=== PATIENT | male | born 1945 | race Caucasian/White ===

== ENCOUNTER → 2017-03-23 18:17 | Outpatient (CLI) | payer MEDICARE ==
[2017-03-23 20:46] LABS: ANION GAP 17.9 mmol/L (8-16); CALCIUM 7.9 mg/dL (8.5-10.1); CARBON DIOXIDE 25.2 mmol/L (21.0-32.0); CREATININE - SERUM 1.8 mg/dL (0.6-1.3); POTASSIUM - SERUM 4.1 mmol/L (3.5-5.1)
== END | disposition home or self-care (01) ==
LOC: D.LAB 18:17
PROVIDERS: Internal Medicine Interventional Cardiology
DX: I10 Essential (primary) hypertension (principal)

== ENCOUNTER → 2017-10-13 08:27 | Outpatient (CLI) | payer MEDICARE | END | disposition home or self-care (01) | LOC: D.RT 08:27 | DX: J45.909 Unspecified asthma, uncomplicated (principal) ==

== ENCOUNTER → 2017-11-02 13:07 | Outpatient (CLI) | payer MEDICARE ==
[2017-11-03 11:19] LABS: ANA REFLEX - DIRECT Negative (Negative)
== END | disposition home or self-care (01) ==
LOC: D.CT 13:07
PROVIDERS: Internal Medicine Pulmonary Disease
DX: J98.11 Atelectasis (principal); R93.8 Abnormal findings on diagnostic imaging of other specified body structures

== ENCOUNTER → 2018-01-26 08:58 | Outpatient (CLI) | payer MEDICARE ==
[~2018-01-26] VITALS: Ht 177.8 cm; Wt 90.9 kg
--- NOTE | ~2018-01-26 | OP ---
PATIENT NAME: RUDI WILKINSON MEDICAL RECORD: [id number] :[birth year] LOCATION:D.CAT ADMISSION DATE: SURGEON: DWAIN WILCOX MD DATE OF OPERATION: 01/26/2018 PROCEDURES: 1. Left heart catheterization. 2. Selective coronary angiography. 3. Left ventriculogram. INDICATION: Chest pain compatible with angina. PROCEDURE IN DETAIL: After informed consent was obtained and after a detailed description of the risks, benefits as well as alternative therapies, the patient elected to proceed with angiogram and heart catheterization. The right radial area was prepped and draped in normal sterile fashion. Right radial artery was cannulated via modified Seldinger technique with placement of 5-Bahamian sheath. All catheters exchanged through this sheath. FINDINGS: The left ventriculogram was performed in standard 30-degree MURPHY view reveals preserved cardiac wall motion, ejection fraction 60%. SELECTIVE CORONARY ANGIOGRAPHY: Left main, left anterior descending, left circumflex, right coronary artery are all smooth-walled vessels with no angiographic evidence of coronary artery disease. OVERALL IMPRESSION: 1. No angiographic evidence of coronary artery disease. 2. Normal left heart pressures. 3. Normal left ventricular systolic function. Chest pain is noncardiac in etiology. No further cardiac workup needs to be ascertained. TRANSINT:[id number] Voice Confirmation ID: [id number] DOCUMENT ID: [id number] DWAIN WILCOX MD at 1218 CC: [id number] DICTATION DATE: 01/26/18 1139 HEAT TREATER APPRENTICE: 01/26/18 1424 DEP CLI 01/26/18 [place] [id number] [place] [id number]
--- NOTE | ~2018-01-26 | HEMODYNAMI ---
PATIENT:RUDI WILKINSON MEDICAL RECORD: [id number] : 47 LOCATION:DLouiseCAT ADMISSION DATE: 01/26/18 Generatedon:01/26/201811:47 Patient name: RUDI IWLKINSON Patient #: [id number] SSN: [id number] : 1945 Date of study: 01/26/2018 Page: Of Hemodynamic Procedure Report Patient Data Patient Demographics Procedure consent was obtained First Name: RUDI Gender: Male Last Name: MINH : 1945 Middle Initial: W Age: 72 year(s) Patient #: [id number] Race: Ethnicity: or SSN: [id number] Additional ID: [id number] Contact details Address: [address] [place] [address] State: [place] City: [place] Zip code: [address] Admission Admission Data Admission Date: 01/26/2018 Admission Time: 8:58 Arrival Date: 01/26/2018 Arrival Time: 11:00 Admit Source: Other Insurance Payor: Medicare Height (in.): 70 BSA: 2.09 (m2) Height (cm.): 177.8 BMI: 28.7 (kg/m2) Weight (lbs.): 200 Weight (kg.): 90.72 Lab Results Lab Result Date: 01/26/2018 Lab Result Time: 0:00 Biochemistry Name Units Result Min Max BUN mg/dl 32 --(----)-* 7 18 Creatinine mg/dl 1.4 --(----)*- 0.6 1.3 CBC Name Units Result Min Max Hemoglobin g/dl 13.2 -*(----)-- 13.5 17.5 Procedure Procedure Types Cath Procedure Diagnostic Procedure [facility] w/Coronaries Sedation Charges Moderate Sedation up to 30 minutes Procedure Description Procedure Date Procedure Date: 01/26/2018 Procedure Start Time: 11:29 Procedure End Time: 11:38 Procedure Staff Name Function Gideon Lo MD Performing Physician Antonella Jackson RT Monitor Francis Altamirano RN Nurse Senia Gonzalez RT Scrub Procedure Data Cath Procedure Fluoroscopy Diagnostic fluoroscopy Total fluoroscopy Time: 2.1 time: 2.1 min min Diagnostic fluoroscopy Total fluoroscopy dose: 401 dose: 401 mGy mGy Contrast Material Contrast Material Type Amount (ml) Isovue 300 34 Entry Location Entry Primary Successful Side Size Upsize Upsize Entry Closure Castanon ccessful Closure Location (Fr) 1 (Fr) 2 (Fr) Remarks Device Remarks Radial Right 6 Fr Mechanical artery Short Compression Estimated blood loss: 5 ml Diagnostic catheters Device Type Used For End Catheter Placement DIAGNOSTIC AR 2 MOD 5 Fr Right Coronary catheter ([id number]) Angiography Procedure Complications No complications Procedure Medications Medication Administration Route Dosage Oxygen NC 2 l/min Lidocaine 2% added to field 20 Heparin Flush Bag added to field 2 bags (1000units/500ml NS) 0.9% NaCl I.V. 100 ml/hr Versed I.V. 1 mg Fentanyl I.V. 50 mcg Versed I.V. 1 mg Fentanyl I.V. 50 mcg Fentanyl I.V. 50 mcg Fentanyl I.V. 50 mcg Hemodynamics Rest BSA: 2.09 (m2) HGB: 13.2 (g/dl) O2 Consumption: Estimated: 269.42 (ml/min) O2 Co nsumption indexed: Estimated:128.91 (ml/min/m) Heart Rate: 105 (bpm) Pressure Samples Time Site Value (mmHg) Purpose Heart Use Rate(bpm) 11:32 LV 135/7,17 Snapshot 111 Snapshots Pre Cath Intra NCS Post Cath Vital Signs Time Heart Resp SPO2 etCO2 NIBP (mmHg) Rhythm Pain Sedation Rate (ipm) (%) (mmHg) Status Level (bpm) 11:07:31 106 30 93 0 171/98(130) NSR 0 (11) 10(A) , No pain 11:11:45 107 34 95 0 163/87(120) NSR 0 (11) 10(A) , No pain 11:15:53 109 36 93 0 163/97(142) NSR 0 (11) 10(A) , No pain 11:19:57 105 32 93 0 139/90(100) NSR 0 (11) 10(A) , No pain 11:24:05 106 34 94 0 157/82(106) NSR 0 (11) 10(A) , No pain 11:28:17 107 40 95 0 163/93(109) NSR 0 (11) 10(A) , No pain 11:32:30 111 32 91 0 155/80(110) NSR 0 (11) 10(A) , No pain 11:36:36 111 34 93 0 139/90(127) NSR 0 (11) 10(A) , No pain Medications Time Medication Route Dose Verified Delivered Reason Notes Effe ctiveness by by 11:05:56 Oxygen NC 2 Gideon Blanco used for l/min Teresita Altamirano RN procedure 11:06:03 Lidocaine 2% added 20ml Gideonban Meneses for local to vial Teresita Lo MD anesthetic field 11:06:08 Heparin Flush added 2 Gideon Gideon used for Bag to bags Teresita Lo MD procedure (1000units/500ml field NS) 11:06:25 0.9% NaCl I.V. 100 Gideonban Navarroie Per ml/hr Teresita Altamirano RN physician 11:09:37 Versed I.V. 1 mg Gideon Blanco for Teresita Altamirano RN sedation 11:09:42 Fentanyl I.V. 50 Gideon Blanco for donny Altamirano RN sedation 11:12:45 Versed I.V. 1 mg Gideon Blanco for Teresita Altamirano RN sedation 11:12:50 Fentanyl I.V. 50 Gideon Blanco for donny Altamirano RN sedation 11:21:54 Fentanyl I.V. 50 Gideon Blanco for donny Altamirano RN sedation 11:25:56 Fentanyl I.V. 50 Gideon Blanco for donny Altamirano RN sedation Procedure Log Time Note 10:37:50 Informed consent obtained and on chart 10:37:59 Diagnostic Cath Status : Elective 10:38:23 Francis Altamirano RN sent for patient. Start room use. 10:38:24 Time tracking: Regular hours (M-F 7:00 - 5:00) 10:38:29 Plan of Care:Hemodynamics will remain stable., Cardiac rhythm will remain stable., Comfort level will be maintained., Respiratory function will remain adequate., Patient/ family verbilizes understanding of procedure., Procedure tolerated without complication., Recovers from procedure without complications.. 10:44:33 Admit Source: Other 10:44:39 Patient Height : 70 inches 10:44:42 Patient Weight : 200 lbs 10:44:43 Arrival Date: 01/26/2018 11:00:00 AM 10:45:14 Insurance Payor : Medicare 10:47:50 Lab Result : Hemoglobin 13.2 g/dl 10:47:50 Lab Result : Creatinine 1.4 mg/dl 10:47:50 Lab Result : BUN 32 mg/dl 10:50:35 Patient received from Pre/Post Procedure Room to CCL 2 Alert and oriented. Tansferred to table in Supine position. 10:50:36 Warm blankets applied, and roby hugger turned on for patient comfort. 10:50:37 Correct patient and procedure confirmed by team. 10:50:37 ECG and BP/O2 sat monitors applied to patient. 11:05:56 Oxygen 2 l/min NC was administered by Francis Altamirano RN; used for procedure; 11:06:03 Lidocaine 2% 20ml vial added to field was administered by Gideon Lo MD; for local anesthetic; 11:06:08 Heparin Flush Bag (1000units/500ml NS) 2 bags added to field was administered by Gideon Lo MD; used for procedure; 11:06:25 0.9% NaCl 100 ml/hr I.V. was administered by Francis Altamirano RN; Per physician; 11:06:29 Vital chart was started 11:06:58 Baseline sample Acquired. 11:07:04 Rhythm: sinus tachycardia 11:07:05 Full Disclosure recording started 11:07:09 H&P Date Dictated: 01/26/2018 Within 30 days and on chart., H&P Addendum completed by physician on day of procedure. (MUST COMPLETE FOR ALL OUTPATIENTS). 11:07:10 Pre-procedure instructions explained to patient. 11:07:11 Pre-op teaching completed and patient verbalized understanding. 11:07:14 Family in waiting room. 11:07:15 Patient NPO since Midnight. 11:07:19 Is the patient allergic to Iodine/contrast media? No. 11:07:20 Was the patient premedicated? No 11:07:25 Is patient on blood thinner?No 11:07:26 Patient diabetic? Yes. 11:07:28 If diabetic: On Metformin? Yes 11:07:31 If on Metformin: Last Dose? 01/24/2018 11:07:34 Previous problem with sedation/anesthesia? No ? 11:08:06 Snore? No 11:08:07 Sleep apnea? No 11:08:08 Deviated septum? No 11:08:08 Opens mouth fully? Yes 11:08:09 Sticks out tongue? Yes 11:08:11 Airway obstruction? No ? 11:08:16 Dentures? Yes out 11:08:20 Pre procedure: right dorsailis pedis pulse 2+ Normal; easily identifiable; not easily obliterated 11:08:23 Pre procedure: left dorsailis pedis pulse 2+ Normal; easily identifiable; not easily obliterated 11:08:25 Patient pain scale 0/10 ?. 11:08:34 IV patent on arrival in left forearm with 0.9% NaCl at [facility]. 11:08:37 Lab results completed and on chart. 11:08:41 Right Radial & Right Groin area was prepped with chlora-prep and draped in sterile fashion 11:08:43 Alarms reviewed by R. N. 11:08:43 Sharps counted by scrub and verified by R.N. 11:08:44 Physician arrived 11:08:45 --------ALL STOP TIME OUT------ 11:08:45 Final Timeout: patient, procedure, and site verified with staff and physician. All members of the team are in agreement. 11:08:47 Right Radial & Right Groin site verified by team. 11:08:50 Physical assessment completed. ASA score P 2 - A patient with mild systemic disease as per Gideon Lo MD. 11:08:54 Sedation plan: IV Moderate Sedation Medication:Versed, Fentanyl 11:08:58 Use device set Radial Dx or PCI 11:08:59 ACIST Syringe (52385) opened to sterile field. 11:08:59 Medline Cath Pack ([id number]) opened to sterile field. 11:08:59 Bag Decanter (2002) opened to sterile field. 11:09:00 DIAGNOSTIC WIRE .035 260cm J wire (094572) opened to sterile field. 11:09:00 ACIST Hand Control (46741) opened to sterile field. 11:09:01 ACIST Manifold (65984) opened to sterile field. 11:09:01 Tegaderm 4 x 4 (1626W) opened to sterile field. 11:09:02 MBrace Wrist Support ([id number]) opened to sterile field. 11:09:03 SHEATH 6Fr Prelude Radial ([id number]) opened to sterile field. 11:09:37 Versed 1 mg I.V. was administered by Francis Altamirano RN; for sedation; 11:09:42 Fentanyl 50 mcg I.V. was administered by Francis Altamirano RN; for sedation; 11:12:45 Versed 1 mg I.V. was administered by Francis Altamirano RN; for sedation; 11:12:50 Fentanyl 50 mcg I.V. was administered by Francis Altamirano RN; for sedation; 11:21:54 Fentanyl 50 mcg I.V. was administered by Francis Altamirano RN; for sedation; 11:25:56 Fentanyl 50 mcg I.V. was administered by Francis Altamirano RN; for sedation; 11:29:23 Procedure started. 11:29:33 Local anesthetic to right radial artery with Lidocaine 2% by Gideon Lo MD.INITIAL ACCESS ONLY 11:31:40 A 6 Fr Short sheath was inserted into the Right Radial artery 11:32:33 LV hemodynamics recorded. 11:32:34 LV gram done using MURPHY 11:32:36 Injector settings: Ml/sec: 5, Volume: 15, 11:32:42 EF : 60 % 11:34:31 Catheter removed. 11:34:41 A DIAGNOSTIC AR 2 MOD 5 Fr catheter ([id number]) was advanced over the wire and used for Right Coronary Angiography. 11:34:46 RCA angiography performed. 11:34:50 Injector settings: Ml/sec: 3, Volume: 6, 11:34:55 Catheter removed. 11:35:04 GUIDE 6FR XBLAD 3.5 catheter ([id number]) opened to sterile field. 11:35:52 LCA angiography performed. 11:35:55 Injector settings: Ml/sec: 3, Volume: 6, 11:36:03 Catheter removed. 11:36:21 TR BAND Standard ([id number]) opened to sterile field. 11:36:32 Sheath removed intact; hemostasis achieved with Mechanical Compression to the Right Radial artery. 11:36:34 Procedure ended.(Physican Out) 11:37:07 Fluoroscopy time 02.10 minutes. 11:37:13 Fluoroscopy dose: 401 mGy 11:37:13 Flurop Dose total: 401 11:37:21 Contrast amount:Isovue 300 34ml. 11:37:23 Sharps counted by scrub and verified by R.N. 11:37:27 TR band inflated with 10cc of air. 11:37:28 Insertion/operative site no bleeding no hematoma. 11:37:32 Post right radial artery:stable 11:37:34 Post Procedure Pulses reassessed and unchanged 11:37:36 Post procedure rhythm: unchanged. 11:37:39 Estimated blood loss: 5 ml 11:37:40 Post procedure instruction explained to patient.Patient verbalizes understanding. 11:37:41 Patient needs reinforcement of post procedure teaching. 11:37:53 Procedure type changed to Cath procedure, Diagnostic procedure, LHC, LHC w/Coronaries, Sedation Charges, Moderate Sedation up to 30 minutes 11:37:53 Procedure and supply charges have been captured, reviewed, submitted and are correct. 11:37:58 Procedure Complication : No complications 11:38:00 Vital chart was stopped 11:38:00 See physician's report for complete and final results. 11:38:06 Report given to Pre/Post Procedure Room. 11:38:09 Patient transfered to Pre/Post Procedure Room with Stretcher. 11:38:11 Procedure ended. 11:38:11 Full Disclosure recording stopped 11:38:15 End room use (Document Last) Device Usage Item Name Manufacture Quantity Catalog Number Hospital Part Current M inimal Lot# / Charge Number Stock Stock Serial# Code ACIST Syringe Acist 1 40587 680366 235782 999252 2 0 (62110) Medical [employer] Inc Medline Cath Cardinal 1 [id number] 269416 02692 686085 5 Pack [facility] ([id number]) Bag Decanter Microtek 1 181766 75084 108757 5 () Medical Inc. DIAGNOSTIC WIRE St [place] 1 889505 667986 878275 772984 3 0 .035 260cm J wire (807554) ACIST Hand Acist 1 92757 295147 652637 584960 5 Control (78980) Medical Systems Inc ACIST Manifold Acist 1 74887 111442 933972 353151 5 (53178) Medical Systems Inc Tegaderm 4 x 4 3M 1 1626W 909211 298438 218339 5 (1626W) MBrace Wrist Advanced 1 140-0250-00 202789 19678 551622 5 Support Vascular ([id number]) Dynamics SHEATH 6Fr Merit 1 [id number] 780045 804613 951240 5 Prelude Radial Medical ([id number]) DIAGNOSTIC AR 2 Cardinal 1 [id number] 360187 655318 485901 2 0 MOD 5 Fr Health catheter (088561L) GUIDE 6FR XBLAD Cardinal 1 [id number] 925273 942451 501143 1 0 3.5 catheter Health (46340112) TR BAND Terumo 1 [id number] 083978 041523 481385 4 0 Standard ([id number]) Signature Audit [place] Stage Time Signature Unsigned Intra-Procedure 01/26/2018 Antonella Jackson 11:47:18 AM RT(R) Signatures Monitor : Antonella Jackson RT Signature : Date : Time : [facility] [address] [place] [address]
[~2018-01-26 08:58] MED LIST: ACETAMINOPHEN500 M1 PO; BAYER CHEWABLE81 MG PO; BENICAR20 MG PO; BREO ELLIPTA 11 EACH INH; CHLOR-TRIMETON4 MG PO; GLUCOPHAGE1000 MG PO; GLUCOTROL 5 MG T5 MG PO; LASIX20 MG PO; NEXIUM40 MG PO; PRINZIDE 20/12.1 TA1 PO; STOOL SOFTENER240 MG PO
[2018-01-26 10:08] VITALS: Ht 177.8 cm; Wt 90.9 kg
[2018-01-26 10:18] LABS: HEMOGLOBIN 13.2 g/dL (13.5-17.5); LYMPHOCYTES 18.9 % (15-50); MCH 26.6 pg (26.0-34.0); MCHC 31.4 g/dL (31.0-37.0); MCV 84.7 fL (80.0-100.0); MEAN PLATELET VOLUME 10.1 fL (7.4-10.4); NEUTROPHILS 68.1 % (40-80); PLATELET COUNT 305 10x3/uL (130-400); RBC 4.96 10x6/uL (4.20-6.10); RDW 16.3 % (11.5-14.5); WBC 8.2 10x3/uL (4.8-10.8)
[2018-01-26 10:37] LABS: ANION GAP 13.1 mmol/L (8-16); CALCIUM 9.4 mg/dL (8.5-10.1); CARBON DIOXIDE 27.5 mmol/L (21.0-32.0); CREATININE - SERUM 1.4 mg/dL (0.6-1.3); POTASSIUM - SERUM 5.6 mmol/L (3.5-5.1)
== END | disposition home or self-care (01) ==
LOC: D.CATH 08:58
PROVIDERS: Internal Medicine Interventional Cardiology
DX: R07.89 Other chest pain (principal); Z01.812 Encounter for preprocedural laboratory examination

== ENCOUNTER 2018-08-02 14:40 | Inpatient (IN) | payer MEDICARE ==
[~2018-08-02] VITALS: Ht 177.8 cm; Wt 93.9 kg
--- NOTE | ~2018-08-02 | MORECARE ---
CASE MANAGEMENT DISCHARGE SUMMARY PATIENT: RUDI WILKINSON UNIT: [id number] ADM DATE: 08/03/18 AGE: 73 : 46 SEX: M ROOM/BED: D.2206 AUTHOR: LAMONTE,DOC PHYSICIAN: REFERRING PHYSICIAN: ROBYN BEGUM MD DATE OF SERVICE: 08/16/18 Discharge Plan Patient Name: RUDI WILKINSON Facility: [facility]:[place] : 1945 Planned Disposition: Home with Home Health Anticipated Discharge Date: Discharge Date: 08/12/2018 Expected LOS: 0 Initial Reviewer: [email or web address] Initial Review Date: 08/02/2018 Generated: 08/16/18 12:27 pm Comments DCP- Discharge Planning Updated by [email or web address]: Paty Francis on 08/12/18 9:[address] PATIENT WILL BE DISCHARGING HOME WITH HOME HEALTH ([facility]) AND HOME O2 ([facility]) THEY WILL DELIVER O2 TO HOSPITAL PRIOR TO LEAVING. IMM SERVED AND EXPLAINED. I CALLED PATIENT'S DAUGHTER, SEDRICK TO LET HER KNOW CM WILL CONTINUE TO FOLLOW AND ASSIST WITH DC PLANNING NEEDED DCP- Discharge Planning Updated by [email or web address]: Paty Francis on 08/11/18 1:[address] SEDRICK CALLED BACK AND AFTER SPEAKING WITH PATIENT AND DAUGHTER PATIENT WOULD LIKE TO GO HOME WITH HOME HEALTH. WILL SET UP HOME HEALTH DCP- Discharge Planning Updated by [email or web address]: Paty Francis on 08/11/18 1:[address] I ATTEMPTED TO CALL SEDRICK (SAMEERATHER) TO GET UPDATE FROM HER AND LM. PATIENT WOULD LIKE TO GO HOME. CM WILL CONTINUE TO FOLLOW AND ASSIST WITH DC PLANNING DCP- Discharge Planning Updated by [email or web address]: Paty Francis on 08/11/18 1:[address] PATIENT WILL NEED HOME O2 WHEN HE IS DISCHARGED. O2 ORDER SENT TO [facility]. CM WILL CONTINUE TO FOLLOW AND ASSIST WITH DC PLANNING DCP- Discharge Planning Updated by [email or web address]: Paty Francis on 08/06/18 12:[address] Patient Name: RUDI WILKINSON Admission Status: Elective Accout number: [id number] Admission Date: 08-03-2018 : 1945 Admission Diagnosis:ALTERED MENTAL STATUS, UNSPECIFIED Attending: ROBYN BEGUM Current LOS: 3 Anticipated DC Date: Planned Disposition: Home with Home Health Primary Insurance: [facility] MEDICARE SOLUTIONS Discharge Planning Comments: CM met with patient to assess discharge planning needs. Patient lives independently at home and stated that his daughter will be the one to take him home. His daughter and grandchildren lives on the same property and are there to help when/if needed. He has a cane, walker, wheelchair, shower chair at home. He stated that he may need Home O2 when discharged. His daughter works for a [employer] and he stated that he thinks he could benefit from it but didn't know the name of the company. CM will continue to follow and assist with DC planning as needed Immigration Paralegal: Paty Francis DCPIA - Discharge Planning Initial Assessment Updated by [email or web address]: Paty Francis on 08/06/18 1:41 pm * Is the patient Alert and Oriented? Yes * How many steps to enter\exit or inside your home? * PCP Naldo * Pharmacy [facility] * Preadmission Environment Home Alone * ADLs Independent * Equipment Bedside Commode Cane Rolling Walker Shower Chair * List name and contact numbers for known caregivers / representatives who currently or will assist patient after discharge: Oma (daughter) [phone] * Verbal permission to speak to the caregivers and representatives has been obtained from the patient. N/A * Community resources currently utilized None * Additional services required to return to the preadmission environment? Yes * Can the patient safely return to the preadmission environment? Yes * Has this patient been hospitalized within the prior 30 days at any hospital? No Coverage Notice Reviewer: [email or web address] - Paty Francis Notice Issued Date-Time: 08/12/2018 10:00 Notice Type: IM Discharge Notice Notice Delivered To: Patient Relationship to Patient: [employer] Laborer Name: Delivery Method: HAND - Hand Delivered Fabiola Days: Prior Verbal Notification: Yes Recipient Understood Notice: Yes Recipient Signature: Yes Med Rec Note Co-signed by Attending: Coverage Notice Comment: Last DP export: 08/12/18 9:43 a Patient Name: RUDI WILKINSON Page 40811 at 1127 All edits/amendments must be made on the electronic document DICTATION DATE: 08/16/181125 COMB WINDER: JIMBO 08/16/181125 RPT#: [id number] DC DATE:08/12/18 STATUS: DIS IN [facility] [address] [place] [address] END OF REPORT
--- NOTE | ~2018-08-02 | MORECARE ---
CASE MANAGEMENT DISCHARGE SUMMARY PATIENT: RUDI WILKINSON UNIT: [id number] ADM DATE: 08/03/18 AGE: 73 : 47 SEX: M ROOM/BED: D.2206 AUTHOR: LAMONTE,DOC PHYSICIAN: REFERRING PHYSICIAN: ROBYN BEGUM MD DATE OF SERVICE: 08/11/18 Discharge Plan Patient Name: RUDI WILKINSON Facility: [facility]:[place] : 1945 Planned Disposition: Home with Home Health Anticipated Discharge Date: Discharge Date: Expected LOS: Initial Reviewer: [email or web address] Initial Review Date: 08/02/2018 Generated: 08/11/18 3:43 pm Comments DCP- Discharge Planning Updated by [email or web address]: Paty Francis on 08/11/18 1:[address] I ATTEMPTED TO CALL SEDRICK (NICHOLAS) TO GET UPDATE FROM HER AND LM. PATIENT WOULD LIKE TO GO HOME. CM WILL CONTINUE TO FOLLOW AND ASSIST WITH DC PLANNING DCP- Discharge Planning Updated by [email or web address]: Paty Francis on 08/11/18 1:[address] PATIENT WILL NEED HOME O2 WHEN HE IS DISCHARGED. O2 ORDER SENT TO [facility]. CM WILL CONTINUE TO FOLLOW AND ASSIST WITH DC PLANNING DCP- Discharge Planning Updated by [email or web address]: Paty Francis on 08/06/18 12:[address] Patient Name: RUDI WILKINSON Admission Status: Elective Accout number: [id number] Admission Date: 08-03-2018 : 1945 Admission Diagnosis:ALTERED MENTAL STATUS, UNSPECIFIED Attending: ROBYN BEGUM Current LOS: 3 Anticipated DC Date: Planned Disposition: Home with Home Health Primary Insurance: [facility] MEDICARE SOLUTIONS Discharge Planning Comments: CM met with patient to assess discharge planning needs. Patient lives independently at home and stated that his daughter will be the one to take him home. His daughter and grandchildren lives on the same property and are there to help when/if needed. He has a cane, walker, wheelchair, shower chair at home. He stated that he may need Home O2 when discharged. His daughter works for a [employer] and he stated that he thinks he could benefit from it but didn't know the name of the company. CM will continue to follow and assist with DC planning as needed Net Ui Developer: Paty Francis DCPIA - Discharge Planning Initial Assessment Updated by [email or web address]: Paty Francis on 08/06/18 1:41 pm * Is the patient Alert and Oriented? Yes * How many steps to enter\exit or inside your home? * PCP Naldo * Pharmacy [facility] [address] * Preadmission Environment Home Alone * ADLs Independent * Equipment Bedside Commode Cane Rolling Walker Shower Chair * List name and contact numbers for known caregivers / representatives who currently or will assist patient after discharge: Oma (daughter) [phone] * Verbal permission to speak to the caregivers and representatives has been obtained from the patient. N/A * Community resources currently utilized None * Additional services required to return to the preadmission environment? Yes * Can the patient safely return to the preadmission environment? Yes * Has this patient been hospitalized within the prior 30 days at any hospital? No Last DP export: 08/11/18 1:32 p Patient Name: RUDI WILKINSON Page [phone] at 1443 All edits/amendments must be made on the electronic document DICTATION DATE: 08/11/181441 WAREHOUSE STOCK CLERK: JIMBO 08/11/181441 RPT#: [id number] DC DATE: STATUS: ADM IN [facility] [address] [place] [address] END OF REPORT
--- NOTE | ~2018-08-02 | MORECARE ---
CASE MANAGEMENT DISCHARGE SUMMARY PATIENT: RUDI WILKINSON UNIT: [id number] ADM DATE: 08/03/18 AGE: 73 : 46 SEX: M ROOM/BED: D.2206 AUTHOR: LAMONTEDOC PHYSICIAN: REFERRING PHYSICIAN: ROBYN BEGUM MD DATE OF SERVICE: 08/06/18 Discharge Plan Patient Name: RUDI WILKINSON Facility: [facility]:[place] : 1945 Planned Disposition: Home with Home Health Anticipated Discharge Date: Discharge Date: Expected LOS: Initial Reviewer: [email or web address] Initial Review Date: 08/02/2018 Generated: 08/06/18 2:44 pm Comments DCP- Discharge Planning Updated by [email or web address]: Paty Francis on 08/06/18 12:[address] Patient Name: RUDI WILKINSON Admission Status: Elective Accout number: [id number] Admission Date: 08-03-2018 : 1945 Admission Diagnosis:ALTERED MENTAL STATUS, UNSPECIFIED Attending: ROBYN BEGUM Current LOS: 3 Anticipated DC Date: Planned Disposition: Home with Home Health Primary Insurance: [facility] MEDICARE SOLUTIONS Discharge Planning Comments: CM met with patient to assess discharge planning needs. Patient lives independently at home and stated that his daughter will be the one to take him home. His daughter and grandchildren lives on the same property and are there to help when/if needed. He has a cane, walker, wheelchair, shower chair at home. He stated that he may need Home O2 when discharged. His daughter works for a Home health and he stated that he thinks he could benefit from it but didn't know the name of the company. CM will continue to follow and assist with DC planning as needed Roof Cement And Paint Maker Helper: Paty Francis DCPIA - Discharge Planning Initial Assessment Updated by [email or web address]: Paty Francis on 08/06/18 1:41 pm * Is the patient Alert and Oriented? Yes * How many steps to enter\exit or inside your home? * PCP Naldo * [facility] [address] * Preadmission Environment Home Alone * ADLs Independent * Equipment Bedside Commode Cane Rolling Walker Shower Chair * List name and contact numbers for known caregivers / representatives who currently or will assist patient after discharge: Oma (daughter) [phone] * Verbal permission to speak to the caregivers and representatives has been obtained from the patient. N/A * Community resources currently utilized None * Additional services required to return to the preadmission environment? Yes * Can the patient safely return to the preadmission environment? Yes * Has this patient been hospitalized within the prior 30 days at any hospital? No Patient Name: RUDI WILKINSON Page [phone] at 1344 All edits/amendments must be made on the electronic document DICTATION DATE: 08/06/18 1344 BEAM DYER RECESSED VAT: JIMBO 08/06/18 1344 RPT#: [id number] OR DATE: STATUS: ADM IN [facility] [address] [place] [address] END OF REPORT
--- NOTE | ~2018-08-02 | CN ---
PATIENT NAME:RUDI CHUN MEDICAL RECORD: [id number] : [birth year] LOCATION:D.MS Aquino2206 ADMIT DATE: 08/03/18 ACCOUNT: [id number] CONSULTING PHYSICIAN: JASPER VICTOR MD REFERRING PHYSICIAN: ROBYN BEGUM MD DATE OF CONSULTATION: 08/03/2018 CONSULT REQUESTING PHYSICIAN: Adama Romero MD REASON FOR CONSULTATION: Acute mental status changes, hypoxia, and orthopnea. HISTORY OF PRESENT ILLNESS: Mr. Chun is a 73-year-old gentleman who has history of COPD and also having orthopnea. He has elevated hemidiaphragm. He had workup at [facility]. Now, the patient is sleepy and hard to arouse. The history was taken by talking to the patient's daughter. According to the daughter, he was taken to Dr. Begum's office with hallucination and mental status changes. Now, since in the hospital, he has became more lethargic and sleepy. He could be awakened, easily goes to sleep. REVIEW OF THE SYSTEMS: The detail is not obtainable. PAST MEDICAL HISTORY: 1. Diaphragm paralysis. 2. Diabetes mellitus type 2. 3. Essential hypertension. 4. Peptic ulcer disease. 5. Osteoarthritis. 6. Orthopnea. PERSONAL AND SOCIAL HISTORY: He is nonsmoker. ALLERGIES: There are no known drug allergies. MEDICATIONS: [employer] is reviewed. PHYSICAL EXAMINATION: GENERAL: Now, the patient is sitting in bed. He is very lethargic. He opens his eyes, but goes back to sleep. VITAL SIGNS: The blood pressure is 150/81, pulse is 99, respiration is 18, temperature is 98.1, and SpO2 is 98% on 3 liters nasal cannula. HEENT: Conjunctivae are pink. Sclerae are not icteric. NECK: Neck is supple. No JVD. CHEST: There are bibasilar crackles. The chest excursion is minimal on the left side. HEART: Rhythm regular. Normal sound. No murmur. ABDOMEN: Abdomen is soft. Bowel sounds present. No hepatosplenomegaly. RECTAL: Deferred. EXTREMITIES: No cyanosis. No clubbing. There is 2 pedal edema. CENTRAL NERVOUS SYSTEM: There is no obvious cranial nerve abnormality. The patient is very sleepy and difficult to assess. LABORATORY DATA: CBC; WBC is 10.7, hemoglobin 10.4, hematocrit 34.6, and platelet count 276. Chemistry; sodium is 140, potassium of 4.4, glucose 139, and ammonia level is 40. The liver enzymes are within normal range. CONSULT REPORT [id number] MINHRUDI Cline IMPRESSION: 1. Acute hypoxic respiratory failure secondary to bilateral lower lobe pneumonia, most likely community-acquired pneumonia. 2. COPD exacerbation. 3. Mental status changes. 4. Hyperammonemia. 5. Left hemidiaphragm paralysis. The patient had workup at [facility]. 6. Pneumonia, bilateral lower lobes. 7. Orthopnea. 8. Bilateral pedal edema. Rule out congestive heart failure. RECOMMENDATION: 1. Start him on cefepime and Levaquin IV empirically. 2. Start on Brovana and budesonide nebulizer. 3. Albuterol/ipratropium nebulizer. 4. Acapella q. 2 hours when the patient is awake. 5. Lactulose 45 cc per hour t.i.d. 6. Increase Lasix to 20 mg b.i.d. 7. Hep-Lock IV. 8. Follow up labs and chest radiograph. If the patient is not doing well, we will transfer him to the ICU. All these talked to the in-charge nurse. Dr. Romero, thank you for involving me in the care of Mr. Chun. TRANSINT:[id number] Voice Confirmation ID: [id number] DOCUMENT ID: [id number] JASPER VICTOR MD at 1711 CC: [id number] DICTATION DATE: 08/03/18 1515 FISHER NET: 08/03/18 1909 ADM IN [facility] [address] [place] [id number]
--- NOTE | ~2018-08-02 | MORECARE ---
CASE MANAGEMENT DISCHARGE SUMMARY PATIENT: RUDI WILKINSON UNIT: [id number] ADM DATE: 08/03/18 AGE: 73 : 46 SEX: M ROOM/BED: D.2206 AUTHOR: DENISHA ABURTO PHYSICIAN: REFERRING PHYSICIAN: ROBYN BEGUM MD DATE OF SERVICE: 08/11/18 Discharge Plan Patient Name: RUDI WILKINSON Facility: [facility]:[place] : 1945 Planned Disposition: Home with Home Health Anticipated Discharge Date: Discharge Date: Expected LOS: Initial Reviewer: [email or web address] Initial Review Date: 08/02/2018 Generated: 08/11/18 3:32 pm Comments DCP- Discharge Planning Updated by [email or web address]: Paty Francis on 08/11/18 1:[address] PATIENT WILL NEED HOME O2 WHEN HE IS DISCHARGED. O2 ORDER SENT TO [facility]. CM WILL CONTINUE TO FOLLOW AND ASSIST WITH DC PLANNING DCP- Discharge Planning Updated by [email or web address]: Paty Francis on 08/06/18 12:[address] Patient Name: RUDI WILKINSON Admission Status: Elective Accout number: [id number] Admission Date: 08-03-2018 : 1945 Admission Diagnosis:ALTERED MENTAL STATUS, UNSPECIFIED Attending: ROBYN BEGUM Current LOS: 3 Anticipated DC Date: Planned Disposition: Home with Home Health Primary Insurance: [facility] MEDICARE SOLUTIONS Discharge Planning Comments: CM met with patient to assess discharge planning needs. Patient lives independently at home and stated that his daughter will be the one to take him home. His daughter and grandchildren lives on the same property and are there to help when/if needed. He has a cane, walker, wheelchair, shower chair at home. He stated that he may need Home O2 when discharged. His daughter works for a Home health and he stated that he thinks he could benefit from it but didn't know the name of the company. CM will continue to follow and assist with DC planning as needed Nut Cracker: Paty Francis DCPIA - Discharge Planning Initial Assessment Updated by [email or web address]: Paty Francis on 08/06/18 1:41 pm * Is the patient Alert and Oriented? Yes * How many steps to enter\exit or inside your home? * PCP Begum * [facility] [address] * Preadmission Environment Home Alone * ADLs Independent * Equipment Bedside Commode Cane Rolling Walker Shower Chair * List name and contact numbers for known caregivers / representatives who currently or will assist patient after discharge: Oma (daughter) [phone] * Verbal permission to speak to the caregivers and representatives has been obtained from the patient. N/A * Community resources currently utilized None * Additional services required to return to the preadmission environment? Yes * Can the patient safely return to the preadmission environment? Yes * Has this patient been hospitalized within the prior 30 days at any hospital? No External Providers External Provider: [facility] Next Contact Date: Service Request Date: Service Type: Resolution: Reviewer: Comments: Last DP export: 08/06/18 12:44 Patient Name: RUDI WILKINSON Page [phone] at 1432 All edits/amendments must be made on the electronic document DICTATION DATE: 08/11/18 1431 RAND BUTTER: JIMBO 08/11/18 1431 RPT#: [id number] DC DATE: STATUS: ADM IN [facility] [address] [place] [address] END OF REPORT
--- NOTE | ~2018-08-02 | MORECARE ---
CASE MANAGEMENT DISCHARGE SUMMARY PATIENT: RUDI WILKINSON UNIT: [id number] ADM DATE: 08/03/18 AGE: 73 : 47 SEX: M ROOM/BED: D.2206 AUTHOR: DENISHA ABURTO PHYSICIAN: REFERRING PHYSICIAN: ROBYN BEGUM MD DATE OF SERVICE: 08/11/18 Discharge Plan Patient Name: RUDI WILKINSON Facility: [facility]:[place] : 1945 Planned Disposition: Home with Home Health Anticipated Discharge Date: Discharge Date: Expected LOS: Initial Reviewer: [email or web address] Initial Review Date: 08/02/2018 Generated: 08/11/18 3:50 pm Comments DCP- Discharge Planning Updated by [email or web address]: Paty Francis on 08/11/18 1:[address] [employer] CALLED BACK AND AFTER SPEAKING WITH PATIENT AND DAUGHTER PATIENT WOULD LIKE TO GO HOME WITH HOME HEALTH. WILL SET UP HOME HEALTH DCP- Discharge Planning Updated by [email or web address]: Paty Francis on 08/11/18 1:[address] I ATTEMPTED TO CALL SEDRICK (NICHOLAS) TO GET UPDATE FROM HER AND LM. PATIENT WOULD LIKE TO GO HOME. CM WILL CONTINUE TO FOLLOW AND ASSIST WITH DC PLANNING DCP- Discharge Planning Updated by [email or web address]: Paty Francis on 08/11/18 1:[address] PATIENT WILL NEED HOME O2 WHEN HE IS DISCHARGED. O2 ORDER SENT TO [facility]. CM WILL CONTINUE TO FOLLOW AND ASSIST WITH DC PLANNING DCP- Discharge Planning Updated by [email or web address]: Paty Francis on 08/06/18 12:[address] Patient Name: RUDI WILKINSON Admission Status: Elective Accout number: [id number] Admission Date: 08-03-2018 : 1945 Admission Diagnosis:ALTERED MENTAL STATUS, UNSPECIFIED Attending: ROBYN BEGUM Current LOS: 3 Anticipated DC Date: Planned Disposition: Home with Home Health Primary Insurance: [facility] MEDICARE SOLUTIONS Discharge Planning Comments: CM met with patient to assess discharge planning needs. Patient lives independently at home and stated that his daughter will be the one to take him home. His daughter and grandchildren lives on the same property and are there to help when/if needed. He has a cane, walker, wheelchair, shower chair at home. He stated that he may need Home O2 when discharged. His daughter works for a Home health and he stated that he thinks he could benefit from it but didn't know the name of the company. CM will continue to follow and assist with DC planning as needed Mellowing Machine Operator: Paty Francis DCPIA - Discharge Planning Initial Assessment Updated by [email or web address]: Paty Francis on 08/06/18 1:41 pm * Is the patient Alert and Oriented? Yes * How many steps to enter\exit or inside your home? * PCP Naldo * Pharmacy [facility] * Preadmission Environment Home Alone * ADLs Independent * Equipment Bedside Commode Cane Rolling Walker Shower Chair * List name and contact numbers for known caregivers / representatives who currently or will assist patient after discharge: Oma (daughter) [phone] * Verbal permission to speak to the caregivers and representatives has been obtained from the patient. N/A * Community resources currently utilized None * Additional services required to return to the preadmission environment? Yes * Can the patient safely return to the preadmission environment? Yes * Has this patient been hospitalized within the prior 30 days at any hospital? No Last DP export: 08/11/18 1:43 p Patient Name: RUDI WILKINSON Page [phone] at 1451 All edits/amendments must be made on the electronic document DICTATION DATE: 08/11/181449 LAND TITLE EXAMINER: JIMBO 08/11/18 145 RPT#: [id number] DC DATE: STATUS: ADM IN [facility] [address] [place] [address] END OF REPORT
--- NOTE | ~2018-08-02 | MORECARE ---
CASE MANAGEMENT DISCHARGE SUMMARY PATIENT: RUDI WILKINSON UNIT: [id number] ADM DATE: 08/03/18 AGE: 73 : 47 SEX: M ROOM/BED: D.2206 AUTHOR: LAMONTE,DOC PHYSICIAN: REFERRING PHYSICIAN: ROBYN BEGUM MD DATE OF SERVICE: 08/12/18 Discharge Plan Patient Name: RUDI WILKINSON Facility: [facility]:[place] : 1945 Planned Disposition: Home with Home Health Anticipated Discharge Date: Discharge Date: Expected LOS: Initial Reviewer: [email or web address] Initial Review Date: 08/02/2018 Generated: 08/12/18 11:43 am Comments DCP- Discharge Planning Updated by [email or web address]: Paty Francis on 08/12/18 9:[address] PATIENT WILL BE DISCHARGING HOME WITH HOME HEALTH ([facility]) AND HOME O2 ([facility]) THEY WILL DELIVER O2 TO HOSPITAL PRIOR TO LEAVING. IMM SERVED AND EXPLAINED. I CALLED PATIENT'S DAUGHTER, SEDRICK TO LET HER KNOW CM WILL CONTINUE TO FOLLOW AND ASSIST WITH DC PLANNING NEEDED DCP- Discharge Planning Updated by [email or web address]: Paty Francis on 08/11/18 1:[address] [employer] CALLED BACK AND AFTER SPEAKING WITH PATIENT AND DAUGHTER PATIENT WOULD LIKE TO GO HOME WITH HOME HEALTH. WILL SET UP HOME HEALTH DCP- Discharge Planning Updated by [email or web address]: Paty Francis on 08/11/18 1:[address] I ATTEMPTED TO CALL SEDRICK (DAUGTHER) TO GET UPDATE FROM HER AND LM. PATIENT WOULD LIKE TO GO HOME. CM WILL CONTINUE TO FOLLOW AND ASSIST WITH DC PLANNING DCP- Discharge Planning Updated by [email or web address]: Paty Francis on 08/11/18 1:[address] PATIENT WILL NEED HOME O2 WHEN HE IS DISCHARGED. O2 ORDER SENT TO [facility]. CM WILL CONTINUE TO FOLLOW AND ASSIST WITH DC PLANNING DCP- Discharge Planning Updated by [email or web address]: Paty Francis on 08/06/18 12:[address] Patient Name: RUDI WILKINSON Admission Status: Elective Accout number: [id number] Admission Date: 08-03-2018 : 1945 Admission Diagnosis:ALTERED MENTAL STATUS, UNSPECIFIED Attending: ROBYN BEGUM Current LOS: 3 Anticipated DC Date: Planned Disposition: Home with Home Health Primary Insurance: [facility] MEDICARE SOLUTIONS Discharge Planning Comments: CM met with patient to assess discharge planning needs. Patient lives independently at home and stated that his daughter will be the one to take him home. His daughter and grandchildren lives on the same property and are there to help when/if needed. He has a cane, walker, wheelchair, shower chair at home. He stated that he may need Home O2 when discharged. His daughter works for a [employer] and he stated that he thinks he could benefit from it but didn't know the name of the company. CM will continue to follow and assist with DC planning as needed Science Job Titles: Paty Francis DCPIA - Discharge Planning Initial Assessment Updated by [email or web address]: Paty Francis on 08/06/18 1:41 pm * Is the patient Alert and Oriented? Yes * How many steps to enter\exit or inside your home? * PCP Naldo * Pharmacy [facility] * Preadmission Environment Home Alone * ADLs Independent * Equipment Bedside Commode Cane Rolling Walker Shower Chair * List name and contact numbers for known caregivers / representatives who currently or will assist patient after discharge: Oma (daughter) [phone] * Verbal permission to speak to the caregivers and representatives has been obtained from the patient. N/A * Community resources currently utilized None * Additional services required to return to the preadmission environment? Yes * Can the patient safely return to the preadmission environment? Yes * Has this patient been hospitalized within the prior 30 days at any hospital? No External Providers [facility] Next Contact Date: Service Request Date: Service Type: Resolution: Reviewer: Comments: Coverage Notice Reviewer: [email or web address] - Paty Francis Notice Issued Date-Time: 08/12/2018 10:00 Notice Type: IM Discharge Notice Notice Delivered To: Patient Relationship to Patient: Community Artist Name: Delivery Method: HAND - Hand Delivered Fabiola Days: Prior Verbal Notification: Yes Recipient Understood Notice: Yes Recipient Signature: Yes Med Rec Note Co-signed by Attending: Coverage Notice Comment: Last DP export: 08/11/18 1:51 p Patient Name: RUDI WILKINSON Page [phone] at 1043 All edits/amendments must be made on the electronic document DICTATION DATE: 08/12/18 1043 ENERGY CONSERVATION SPECIALIST: JIMBO 08/12/18 1043 RPT#: [id number] DC DATE: STATUS: ADM IN [facility] [address] [place] [address] END OF REPORT
[2018-08-02 16:19] LABS: ALBUMIN 2.7 g/dL (3.4-5.0); ANION GAP 8.9 mmol/L (8-16); BILIRUBIN - TOTAL 0.3 mg/dL (0.2-1.3); CALCIUM 7.9 mg/dL (8.5-10.1); CARBON DIOXIDE 31.2 mmol/L (21.0-32.0); CREATININE - SERUM 1.2 mg/dL (0.6-1.3); MAGNESIUM - SERUM 1.6 mg/dL (1.8-2.4); POTASSIUM - SERUM 4.1 mmol/L (3.5-5.1); PROTEIN - SERUM 7.1 g/dL (6.4-8.2)
[2018-08-02 16:36] VITALS: BP 122/69
[2018-08-02] MEDS ORDERED: BYSTOLIC20 MG PO (18:01)
[2018-08-02 18:05] VITALS: BP 130/100; BMI 31.3
[2018-08-02 19:00] VITALS: BP 150/64
[2018-08-03] VITALS (11 sets, daily range): BP systolic 101–175; BP diastolic 55–95; BMI 31.2
[2018-08-03 05:37] LABS: BASOPHILS 0.2 % (0-2); HEMATOCRIT 34.6 % (42.0-54.0); HEMOGLOBIN 10.4 g/dL (13.5-17.5); IMMATURE GRANULOCYTES 0.1 % (0-5); LYMPHOCYTES 11.4 % (15-50); MCHC 30.1 g/dL (31.0-37.0); MCV 79.9 fL (80.0-100.0); MEAN PLATELET VOLUME 10.2 fL (7.4-10.4); NEUTROPHILS 75.3 % (40-80); PLATELET COUNT 278 10x3/uL (130-400); RBC 4.33 10x6/uL (4.20-6.10); RDW 17.1 % (11.5-14.5); WBC 10.7 10x3/uL (4.8-10.8)
[2018-08-03 07:20] LABS: ALBUMIN 2.9 g/dL (3.4-5.0); ALKALINE PHOSPHATASE 111 U/L (46-116); ALT (SGPT) 43 U/L (10-68); BILIRUBIN - TOTAL 0.21 mg/dL (0.2-1.3); CALC OSMOLALITY 283 mosm/kg (275-300); CALCIUM 8.4 mg/dL (8.5-10.1); CARBON DIOXIDE 26.8 mmol/L (21.0-32.0); CHLORIDE - SERUM 103 mmol/L (98-107); GLUCOSE 139 mg/dL (74-106); MAGNESIUM - SERUM 1.8 mg/dL (1.8-2.4); POTASSIUM - SERUM 4.4 mmol/L (3.5-5.1); PROTEIN - SERUM 7.2 g/dL (6.4-8.2); SODIUM 140 mmol/L (136-145); UREA NITROGEN 20 mg/dL (7-18); eGFR NON AFRICAN AMERICAN 78 mL/min (90-120)
[2018-08-03 16:31] LABS: THYROID STIMULATING HORMONE 1.34 uIU/mL (0.36-3.74)
[2018-08-04] VITALS (15 sets, daily range): BP systolic 113–142; BP diastolic 50–85; Ht 177.8 cm; Wt 93.9 kg
[2018-08-04 04:32] LABS: BASOPHILS 0.1 % (0-2); EOSINOPHILS 1.4 % (0-7); HEMATOCRIT 35.7 % (42.0-54.0); HEMOGLOBIN 10.5 g/dL (13.5-17.5); IMMATURE GRANULOCYTES 0.1 % (0-5); LYMPHOCYTES 11.9 % (15-50); MCH 24.1 pg (26.0-34.0); MCHC 29.4 g/dL (31.0-37.0); MEAN PLATELET VOLUME 10.6 fL (7.4-10.4); MONOCYTES 9.9 % (2-11); NEUTROPHILS 76.6 % (40-80); PLATELET COUNT 281 10x3/uL (130-400); RBC 4.36 10x6/uL (4.20-6.10); WBC 8.5 10x3/uL (4.8-10.8)
[2018-08-04 04:45] LABS: MCV 81.9 fL (80.0-100.0)
[2018-08-04 04:52] LABS: ALBUMIN 2.6 g/dL (3.4-5.0); ANION GAP 10.4 mmol/L (8-16); BILIRUBIN - TOTAL 0.28 mg/dL (0.2-1.3); CREATININE - SERUM 1.5 mg/dL (0.6-1.3); MAGNESIUM - SERUM 1.6 mg/dL (1.8-2.4); POTASSIUM - SERUM 4.4 mmol/L (3.5-5.1); PROTEIN - SERUM 7.7 g/dL (6.4-8.2)
[2018-08-05 03:00] VITALS: BP 133/75
[2018-08-05 04:54] LABS: BASOPHILS 0.1 % (0-2); EOSINOPHILS 0.8 % (0-7); HEMATOCRIT 34.7 % (42.0-54.0); HEMOGLOBIN 10.2 g/dL (13.5-17.5); IMMATURE GRANULOCYTES 0.3 % (0-5); LYMPHOCYTES 11.4 % (15-50); MCH 23.7 pg (26.0-34.0); MCHC 29.4 g/dL (31.0-37.0); MCV 80.5 fL (80.0-100.0); MEAN PLATELET VOLUME 10.3 fL (7.4-10.4); NEUTROPHILS 77.4 % (40-80); PLATELET COUNT 285 10x3/uL (130-400); RBC 4.31 10x6/uL (4.20-6.10); RDW 16.9 % (11.5-14.5); WBC 10.2 10x3/uL (4.8-10.8)
[2018-08-05 05:12] LABS: ALBUMIN 2.6 g/dL (3.4-5.0); ANION GAP 12.2 mmol/L (8-16); BILIRUBIN - TOTAL 0.4 mg/dL (0.2-1.3); CALCIUM 8.4 mg/dL (8.5-10.1); CARBON DIOXIDE 32.2 mmol/L (21.0-32.0); CREATININE - SERUM 1.6 mg/dL (0.6-1.3); MAGNESIUM - SERUM 1.8 mg/dL (1.8-2.4); POTASSIUM - SERUM 4.4 mmol/L (3.5-5.1); PROTEIN - SERUM 7.5 g/dL (6.4-8.2)
[2018-08-05 08:05] VITALS: BP 102/60
[2018-08-05 08:39] VITALS: BP 135/69
[2018-08-05 11:42] VITALS: BP 137/68
[2018-08-05 16:48] VITALS: BP 114/72
[2018-08-05 20:00] VITALS: BP 126/59
[2018-08-06] VITALS: BP 127/57
[2018-08-06 03:49] LABS: BASOPHILS 0.2 % (0-2); EOSINOPHILS 1.3 % (0-7); IMMATURE GRANULOCYTES 0.3 % (0-5); LYMPHOCYTES 14.1 % (15-50); MCH 24.1 pg (26.0-34.0); MCHC 30.3 g/dL (31.0-37.0); MCV 79.5 fL (80.0-100.0); MEAN PLATELET VOLUME 10.2 fL (7.4-10.4); MONOCYTES 11.3 % (2-11); NEUTROPHILS 72.8 % (40-80); PLATELET COUNT 285 10x3/uL (130-400); RBC 4.15 10x6/uL (4.20-6.10); RDW 16.7 % (11.5-14.5); WBC 10.2 10x3/uL (4.8-10.8)
[2018-08-06 04:00] VITALS: BP 129/55
[2018-08-06 04:15] LABS: ALBUMIN 2.5 g/dL (3.4-5.0); ANION GAP 7.9 mmol/L (8-16); BILIRUBIN - TOTAL 0.42 mg/dL (0.2-1.3); CALCIUM 8.2 mg/dL (8.5-10.1); CARBON DIOXIDE 32.1 mmol/L (21.0-32.0); CREATININE - SERUM 1.5 mg/dL (0.6-1.3); MAGNESIUM - SERUM 1.9 mg/dL (1.8-2.4); PROTEIN - SERUM 7.6 g/dL (6.4-8.2)
[2018-08-06 09:15] VITALS: BP 140/60
[2018-08-06 12:39] VITALS: BP 125/57
[2018-08-06 16:33] VITALS: BP 135/70
[2018-08-06 20:08] VITALS: BP 114/82
[2018-08-07] VITALS: BP 164/72
[2018-08-07 04:00] VITALS: BP 135/71
[2018-08-07 06:11] LABS: BASOPHILS 0.1 % (0-2); EOSINOPHILS 1.4 % (0-7); HEMATOCRIT 34.2 % (42.0-54.0); HEMOGLOBIN 10.3 g/dL (13.5-17.5); IMMATURE GRANULOCYTES 0.2 % (0-5); LYMPHOCYTES 8.7 % (15-50); MCH 23.8 pg (26.0-34.0); MCHC 30.1 g/dL (31.0-37.0); MCV 79.2 fL (80.0-100.0); MEAN PLATELET VOLUME 10.3 fL (7.4-10.4); MONOCYTES 13.7 % (2-11); NEUTROPHILS 75.9 % (40-80); PLATELET COUNT 271 10x3/uL (130-400); RBC 4.32 10x6/uL (4.20-6.10); RDW 16.6 % (11.5-14.5); WBC 10.3 10x3/uL (4.8-10.8)
[2018-08-07 06:35] LABS: ALBUMIN 2.5 g/dL (3.4-5.0); ANION GAP 9.5 mmol/L (8-16); BILIRUBIN - TOTAL 0.4 mg/dL (0.2-1.3); CALCIUM 8.2 mg/dL (8.5-10.1); CARBON DIOXIDE 32.3 mmol/L (21.0-32.0); CREATININE - SERUM 1.3 mg/dL (0.6-1.3); MAGNESIUM - SERUM 1.6 mg/dL (1.8-2.4); POTASSIUM - SERUM 3.8 mmol/L (3.5-5.1); PROTEIN - SERUM 7.4 g/dL (6.4-8.2)
[2018-08-07 08:51] VITALS: BP 135/67
[2018-08-07 12:53] VITALS: BP 121/60
[2018-08-07 16:25] VITALS: BP 130/75
[2018-08-07 20:00] VITALS: BP 113/61
[2018-08-08] VITALS: BP 135/70
[2018-08-08 04:00] VITALS: BP 122/79
[2018-08-08 05:34] LABS: BASOPHILS 0.2 % (0-2); EOSINOPHILS 1.5 % (0-7); HEMATOCRIT 33.4 % (42.0-54.0); HEMOGLOBIN 10.1 g/dL (13.5-17.5); IMMATURE GRANULOCYTES 0.2 % (0-5); LYMPHOCYTES 14.8 % (15-50); MCH 23.7 pg (26.0-34.0); MCHC 30.2 g/dL (31.0-37.0); MCV 78.2 fL (80.0-100.0); MEAN PLATELET VOLUME 10.6 fL (7.4-10.4); MONOCYTES 10.8 % (2-11); NEUTROPHILS 72.5 % (40-80); PLATELET COUNT 286 10x3/uL (130-400); RBC 4.27 10x6/uL (4.20-6.10); RDW 16.7 % (11.5-14.5); WBC 10.3 10x3/uL (4.8-10.8)
[2018-08-08 05:55] LABS: ALBUMIN 2.5 g/dL (3.4-5.0); ANION GAP 10.1 mmol/L (8-16); BILIRUBIN - TOTAL 0.42 mg/dL (0.2-1.3); CALCIUM 8.4 mg/dL (8.5-10.1); CREATININE - SERUM 1.4 mg/dL (0.6-1.3); POTASSIUM - SERUM 4.1 mmol/L (3.5-5.1); PROTEIN - SERUM 7.4 g/dL (6.4-8.2)
[2018-08-08 09:31] VITALS: BP 120/65
[2018-08-08 12:37] VITALS: BP 131/61
[2018-08-08 17:28] VITALS: BP 127/61
[2018-08-08 20:00] VITALS: BP 124/60
[2018-08-09] VITALS: BP 115/55
[2018-08-09 04:00] VITALS: BP 139/66
[2018-08-09 06:10] LABS: BASOPHILS 0.2 % (0-2); EOSINOPHILS 1.6 % (0-7); HEMATOCRIT 35.4 % (42.0-54.0); HEMOGLOBIN 10.8 g/dL (13.5-17.5); IMMATURE GRANULOCYTES 0.2 % (0-5); LYMPHOCYTES 12.4 % (15-50); MCH 23.9 pg (26.0-34.0); MCHC 30.5 g/dL (31.0-37.0); MCV 78.5 fL (80.0-100.0); MEAN PLATELET VOLUME 10.6 fL (7.4-10.4); MONOCYTES 12.9 % (2-11); NEUTROPHILS 72.7 % (40-80); PLATELET COUNT 337 10x3/uL (130-400); RBC 4.51 10x6/uL (4.20-6.10); RDW 17.1 % (11.5-14.5); WBC 12.2 10x3/uL (4.8-10.8)
[2018-08-09 06:30] LABS: ALBUMIN 2.6 g/dL (3.4-5.0); ANION GAP 12.5 mmol/L (8-16); BILIRUBIN - TOTAL 0.36 mg/dL (0.2-1.3); CALCIUM 8.5 mg/dL (8.5-10.1); CARBON DIOXIDE 29.3 mmol/L (21.0-32.0); CREATININE - SERUM 1.4 mg/dL (0.6-1.3); POTASSIUM - SERUM 3.8 mmol/L (3.5-5.1)
[2018-08-09 08:30] VITALS: BP 153/60
[2018-08-09 13:18] VITALS: BP 135/77
[2018-08-09 16:38] VITALS: BP 139/61
[2018-08-09 20:00] VITALS: BP 143/71
[2018-08-10 05:09] LABS: BASOPHILS 0.2 % (0-2); EOSINOPHILS 1.4 % (0-7); HEMATOCRIT 33.1 % (42.0-54.0); HEMOGLOBIN 10.1 g/dL (13.5-17.5); IMMATURE GRANULOCYTES 0.3 % (0-5); LYMPHOCYTES 12.5 % (15-50); MCH 23.9 pg (26.0-34.0); MCHC 30.5 g/dL (31.0-37.0); MCV 78.4 fL (80.0-100.0); MEAN PLATELET VOLUME 10.8 fL (7.4-10.4); MONOCYTES 15.8 % (2-11); NEUTROPHILS 69.8 % (40-80); PLATELET COUNT 307 10x3/uL (130-400); RBC 4.22 10x6/uL (4.20-6.10); RDW 17.1 % (11.5-14.5); WBC 11.8 10x3/uL (4.8-10.8)
[2018-08-10 05:43] LABS: ALBUMIN 2.5 g/dL (3.4-5.0); ANION GAP 10.9 mmol/L (8-16); BILIRUBIN - TOTAL 0.35 mg/dL (0.2-1.3); CARBON DIOXIDE 29.9 mmol/L (21.0-32.0); CREATININE - SERUM 1.5 mg/dL (0.6-1.3); POTASSIUM - SERUM 3.8 mmol/L (3.5-5.1); PROTEIN - SERUM 7.8 g/dL (6.4-8.2)
[2018-08-10 06:00] VITALS: BP 156/63
[2018-08-10 08:19] VITALS: BP 150/70
[2018-08-10 11:39] VITALS: BP 145/68
[2018-08-10 15:54] VITALS: BP 131/54
[2018-08-10 22:56] VITALS: BP 158/65
[2018-08-11] VITALS: BP 148/70
[2018-08-11 04:28] VITALS: BP 134/70
[2018-08-11 04:50] LABS: BASOPHILS 0.2 % (0-2); EOSINOPHILS 1.3 % (0-7); HEMATOCRIT 33.3 % (42.0-54.0); HEMOGLOBIN 10.3 g/dL (13.5-17.5); IMMATURE GRANULOCYTES 0.3 % (0-5); LYMPHOCYTES 14.9 % (15-50); MCH 24.2 pg (26.0-34.0); MCHC 30.9 g/dL (31.0-37.0); MCV 78.4 fL (80.0-100.0); MEAN PLATELET VOLUME 11.2 fL (7.4-10.4); MONOCYTES 14.3 % (2-11); PLATELET COUNT 349 10x3/uL (130-400); RBC 4.25 10x6/uL (4.20-6.10); RDW 17.4 % (11.5-14.5); WBC 12.1 10x3/uL (4.8-10.8)
[2018-08-11 05:13] LABS: ALBUMIN 2.5 g/dL (3.4-5.0); BILIRUBIN - TOTAL 0.43 mg/dL (0.2-1.3); CALCIUM 8.4 mg/dL (8.5-10.1); CARBON DIOXIDE 29.9 mmol/L (21.0-32.0); CREATININE - SERUM 1.3 mg/dL (0.6-1.3); POTASSIUM - SERUM 3.9 mmol/L (3.5-5.1); PROTEIN - SERUM 7.8 g/dL (6.4-8.2)
[2018-08-11 08:34] VITALS: BP 138/74
[2018-08-11 12:03] VITALS: BP 146/73
[2018-08-11 16:21] VITALS: BP 129/62
[2018-08-11 20:00] VITALS: BP 127/82
[2018-08-12 04:30] VITALS: BP 134/76
[2018-08-12 04:55] LABS: BASOPHILS 0.2 % (0-2); EOSINOPHILS 1.3 % (0-7); HEMATOCRIT 33.3 % (42.0-54.0); HEMOGLOBIN 10.1 g/dL (13.5-17.5); IMMATURE GRANULOCYTES 0.3 % (0-5); LYMPHOCYTES 14.5 % (15-50); MCH 23.7 pg (26.0-34.0); MCHC 30.3 g/dL (31.0-37.0); MEAN PLATELET VOLUME 10.4 fL (7.4-10.4); MONOCYTES 13.4 % (2-11); NEUTROPHILS 70.3 % (40-80); PLATELET COUNT 341 10x3/uL (130-400); RBC 4.27 10x6/uL (4.20-6.10); RDW 16.9 % (11.5-14.5); WBC 11.1 10x3/uL (4.8-10.8)
[2018-08-12 05:23] LABS: ALBUMIN 2.4 g/dL (3.4-5.0); ANION GAP 10.4 mmol/L (8-16); BILIRUBIN - TOTAL 0.26 mg/dL (0.2-1.3); CALCIUM 8.2 mg/dL (8.5-10.1); CARBON DIOXIDE 32.2 mmol/L (21.0-32.0); CREATININE - SERUM 1.2 mg/dL (0.6-1.3); POTASSIUM - SERUM 3.6 mmol/L (3.5-5.1); PROTEIN - SERUM 7.6 g/dL (6.4-8.2)
[2018-08-12] MEDS ORDERED: FISH OIL 1,0001 CA1 PO (09:00)
[2018-08-12] MEDS ORDERED: LISINOPRIL10 MG PO (09:00)
[2018-08-12] MEDS ORDERED: BYSTOLIC20 MG PO (09:01)
[2018-08-12] MEDS ORDERED: K-TAB10 MEQ PO (09:03)
[2018-08-12] MEDS ORDERED: LEVOFLOXACIN500 MG PO (09:04)
[2018-08-12 10:20] VITALS: BP 118/46
[2018-08-12] MEDS ORDERED: IPRAT-ALBUT 0.5-3 ML UPD (10:25)
== END 2018-08-12 13:18 | disposition home health service (06) | DRG 177 ==
LOC: D.M2 14:40 → OBSVTIME 14:44 → D.ICU 08-03 17:02 → D.M2 08-03 17:02 → D.MS 08-03 17:02 → D.ICU 08-03 17:41 → D.MS 08-05 13:45
PROVIDERS: Family Medicine; Internal Medicine Pulmonary Disease
DX: J69.0 Pneumonitis due to inhalation of food and vomit (principal); J96.01 Acute respiratory failure with hypoxia; G93.41 Metabolic encephalopathy; E72.20 Disorder of urea cycle metabolism, unspecified; J44.1 Chronic obstructive pulmonary disease with (acute) exacerbation; J44.0 Chronic obstructive pulmonary disease with (acute) lower respiratory infection; R60.9 Edema, unspecified; E11.9 Type 2 diabetes mellitus without complications; I10 Essential (primary) hypertension; J98.6 Disorders of diaphragm

== ENCOUNTER 2019-01-11 11:45 | Day surgery (SDC) | payer MEDICARE ==
[~2019-01-11] VITALS: Ht 177.8 cm; Wt 86.4 kg
[~2019-01-11 11:45] MED LIST changes: +BYSTOLIC20 MG PO; +FISH OIL 1,0001 CA1 PO; +IPRAT-ALBUT 0.5-3 ML UPD; +K-TAB10 MEQ PO; +LEVOFLOXACIN500 MG PO; +LISINOPRIL10 MG PO
[2019-01-11 12:17] LABS: BASOPHILS 0.3 % (0-2); EOSINOPHILS 2.7 % (0-7); HEMATOCRIT 32.8 % (42.0-54.0); HEMOGLOBIN 9.9 g/dL (13.5-17.5); IMMATURE GRANULOCYTES 0.3 % (0-5); LYMPHOCYTES 29.5 % (15-50); MCH 22.3 pg (26.0-34.0); MCHC 30.2 g/dL (31.0-37.0); MCV 73.9 fL (80.0-100.0); MEAN PLATELET VOLUME 9.6 fL (7.4-10.4); MONOCYTES 14.5 % (2-11); NEUTROPHILS 52.7 % (40-80); PLATELET COUNT 365 10x3/uL (130-400); RBC 4.44 10x6/uL (4.20-6.10); RDW 16.5 % (11.5-14.5); WBC 10.1 10x3/uL (4.8-10.8)
[2019-01-11 12:19] LABS: CALC OSMOLALITY 276 mosm/kg (275-300); CALCIUM 8.5 mg/dL (8.5-10.1); CARBON DIOXIDE 25.9 mmol/L (21.0-32.0); CHLORIDE - SERUM 103 mmol/L (98-107); POTASSIUM - SERUM 3.6 mmol/L (3.5-5.1); SODIUM 139 mmol/L (136-145); UREA NITROGEN 15 mg/dL (7-18); eGFR NON AFRICAN AMERICAN 78 mL/min (90-120)
[2019-01-11 12:20] LABS: GLUCOSE 62 mg/dL (74-106)
[2019-01-11 13:02] VITALS: Ht 177.8 cm; Wt 86.4 kg
--- NOTE | 2019-01-11 17:52 | NUR ---
DC INSTRUCTIONS GIVEN TO PT/FAMILY. STATE UNDERSTANDING. DC'D IV CATH FULLY INTACT.
--- NOTE | 2019-01-11 18:19 | NUR ---
PT LEFT UNIT VIA WC AT 1805
--- NOTE | 2019-01-12 18:45 | OP ---
PATIENT NAME: RUDI WILKINSON MEDICAL RECORD: [id number] :[birth year] LOCATION:D.OPS ADMISSION DATE: SURGEON: ASHISH BLOCK MD DATE OF OPERATION: 01/11/2019 PREOPERATIVE DIAGNOSES: 1. Right colon mass. 2. Numerous colon polyps. POSTOPERATIVE DIAGNOSES: 1. Right colon mass. 2. Numerous colon polyps. PROCEDURES: 1. Total colonoscopy. 2. Biopsy forceps polypectomy times 1. 3. Cold endoscopic biopsies of the right-sided colon mass, which is undoubtedly a malignancy. 4. Tattooing in the transverse colon distal to the distal most large polyp. SURGEON: Ashish Block MD ARTIFICIAL STONE APPLICATOR: None. BLOOD LOSS: Minimal. ANESTHESIA: IV sedation. COMPLICATIONS: None. The risks, possible complications, and alternatives to the procedure were explained to the patient. He elects to proceed. Discussion specifically included, but was not limited to, bleeding, requiring emergency reoperation; infection; endoscopic perforation; and possible need for additional operative procedure. OPERATIVE COURSE: The patient was conveyed to the operating room electively on 01/11/2019. IV sedation was induced by the anesthesia staff. The patient was placed in the Vincent position. A digital rectal examination was performed. It revealed the prostate was without nodules. It was enlarged and symmetric. A colonoscope was inserted through the anus. It was advanced easily to the mass, which is in the proximal ascending colon. Multiple cold endoscopic biopsies were obtained. I then withdrew it into the colon. At about 70 cm, there was another polyp which had a tatto distal to it. I wanted to tattoo this a little bit more distinctly, so I advanced a sclerotherapy needle and 10 cc of Felicita ink was used to tattoo distal to this polyp. I then continued to withdraw the endoscope. There was a 1.0- x 1.2-cm semi-pedunculated polyp. It was removed in its entirety utilizing the hot biopsy forceps polypectomy technique. I then withdrew into the rectum. A retroflexed view was obtained in the rectum. I then unretroflexed the scope and removed it under direct vision. OPERATIVE REPORT [id number] RUDI WILKINSON I am going to speak to the patient's family. I will set him up for extended right colectomy sometime in the near future. TRANSINT:[id number] Voice Confirmation ID: [id number] DOCUMENT ID: [id number] ASHISH BLOCK MD at 1845 CC: EDIN HARDEN [id number] DICTATION DATE: 01/11/191656 HEALTH INFORMATION TECHNOLOGIST: 01/11/191932 [facility] 01/11/19 [place] [id number] [place] [id number]
== END 2019-01-11 18:05 | disposition home or self-care (01) ==
LOC: D.OPS 11:45
PROVIDERS: Anesthesiology; ATTEND Surgery
DX: C18.0 Malignant neoplasm of cecum (principal); D12.5 Benign neoplasm of sigmoid colon; Z01.812 Encounter for preprocedural laboratory examination

== ENCOUNTER 2019-01-19 11:33 | Inpatient (IN) | payer MEDICARE ==
[~2019-01-19] VITALS: Ht 177.8 cm; Wt 85.5 kg
--- NOTE | ~2019-01-19 | DS ---
PATIENT:RUDI WILKINSON :[birth year] MEDICAL RECORD: [id number] DISCHARGE SUMMARY ADMISSION DATE: 01/21/19 DISCHARGE DATE: 01/30/19 PRINCIPAL DIAGNOSES: Colonic adenocarcinoma with mucin production, moderately differentiated, invading the underlying wall up to the muscularis propria and 1 of 12 mesenteric lymph nodes contained metastatic adenocarcinoma, extensive intra-abdominal adhesions, hypomagnesemia, and also hypokalemia. Other diagnoses should include acute respiratory failure, bibasilar atelectasis, COPD/asthma, gastroesophageal reflux disease, peptic ulcer disease, diabetes mellitus type 2, hypertension, anemia requiring transfusion, right hip severe degenerative joint disease, elevated ammonia, cirrhosis, leukocytosis, hypokalemia, and hypocalcemia. PROCEDURES: Attempted hand-assisted laparoscopic surgery with conversion to open and extended right hemicolectomy. HOSPITAL COURSE: The patient underwent the above operative procedure. He required mechanical ventilation postoperatively. He was able to be weaned from the ventilator. He was moved to the floor. His stay was longer than usual due to respiratory problems. He is being dismissed home. TRANSINT:[id number] Voice Confirmation ID: [id number] DOCUMENT ID: [id number] ASHISH BLOCK MD CC: [id number] DICTATION DATE: 01/30/19 1346 CUSTOMER PROFESSIONAL: 01/30/19 2305 DIS IN 01/30/19 [facility] [address] [place] [address]
[2019-01-21] VITALS (12 sets, daily range): BP systolic 138–166; BP diastolic 67–93; BMI 27.3; BMI 28.3
[2019-01-21 08:31] LABS: BASOPHILS 0.3 % (0-2); EOSINOPHILS 2.4 % (0-7); HEMATOCRIT 31.1 % (42.0-54.0); HEMOGLOBIN 9.4 g/dL (13.5-17.5); IMMATURE GRANULOCYTES 0.1 % (0-5); MCH 22.3 pg (26.0-34.0); MCHC 30.2 g/dL (31.0-37.0); MCV 73.9 fL (80.0-100.0); MEAN PLATELET VOLUME 9.2 fL (7.4-10.4); MONOCYTES 13.1 % (2-11); NEUTROPHILS 65.1 % (40-80); PLATELET COUNT 296 10x3/uL (130-400); RBC 4.21 10x6/uL (4.20-6.10); RDW 17.1 % (11.5-14.5); WBC 7.8 10x3/uL (4.8-10.8)
[2019-01-21 08:32] LABS: APTT 31.3 SECONDS (22.8-39.4); CALC OSMOLALITY 284 mosm/kg (275-300); CALCIUM 8.5 mg/dL (8.5-10.1); CARBON DIOXIDE 29.1 mmol/L (21.0-32.0); CHLORIDE - SERUM 103 mmol/L (98-107); POTASSIUM - SERUM 3.3 mmol/L (3.5-5.1); SODIUM 140 mmol/L (136-145); UREA NITROGEN 18 mg/dL (7-18); eGFR NON AFRICAN AMERICAN 78 mL/min (90-120)
[2019-01-21 08:34] LABS: GLUCOSE 170 mg/dL (74-106)
[2019-01-21 08:38] LABS: INR 1.05 (0.85-1.17); PROTIME 13.2 SECONDS (11.6-15.0)
[2019-01-21] MEDS ORDERED: SYMBICORT 16010.2 GM INH (09:17)
[2019-01-21 16:03] LABS: BASOPHILS 0.1 % (0-2); EOSINOPHILS 0.1 % (0-7); IMMATURE GRANULOCYTES 0.2 % (0-5); MCH 21.9 pg (26.0-34.0); MCHC 29.7 g/dL (31.0-37.0); MCV 73.9 fL (80.0-100.0); MEAN PLATELET VOLUME 9.7 fL (7.4-10.4); MONOCYTES 9.2 % (2-11); NEUTROPHILS 86.4 % (40-80); PLATELET COUNT 270 10x3/uL (130-400)
[2019-01-21 16:04] LABS: RBC 3.33 10x6/uL (4.20-6.10); WBC 16.8 10x3/uL (4.8-10.8)
[2019-01-21 16:10] LABS: HEMATOCRIT 24.6 % (42.0-54.0); HEMOGLOBIN 7.3 g/dL (13.5-17.5)
[2019-01-21 16:18] LABS: ALKALINE PHOSPHATASE 80 U/L (46-116); ALT (SGPT) 33 U/L (10-68); BILIRUBIN - TOTAL 0.41 mg/dL (0.2-1.3); CALC OSMOLALITY 285 mosm/kg (275-300); CHLORIDE - SERUM 110 mmol/L (98-107); CREATININE - SERUM 0.9 mg/dL (0.6-1.3); GLUCOSE 175 mg/dL (74-106); PROTEIN - SERUM 5.5 g/dL (6.4-8.2); SODIUM 141 mmol/L (136-145); TROPONIN-I 0.022 ng/mL (0.000-0.060); UREA NITROGEN 14 mg/dL (7-18); eGFR NON AFRICAN AMERICAN 88 mL/min (90-120)
[2019-01-21 16:23] LABS: CALCIUM 6.3 mg/dL (8.5-10.1); CARBON DIOXIDE 21.5 mmol/L (21.0-32.0); POTASSIUM - SERUM 2.6 mmol/L (3.5-5.1)
[2019-01-22] VITALS (25 sets, daily range): BP systolic 108–166; BP diastolic 53–98; Ht 177.8 cm; Wt 85.5 kg
[2019-01-22 02:49] LABS: BASOPHILS 0.1 % (0-2); EOSINOPHILS 0 % (0-7); IMMATURE GRANULOCYTES 0.2 % (0-5); LYMPHOCYTES 7.1 % (15-50); MCH 23.5 pg (26.0-34.0); MEAN PLATELET VOLUME 10.1 fL (7.4-10.4); MONOCYTES 8.9 % (2-11); NEUTROPHILS 83.7 % (40-80); PLATELET COUNT 251 10x3/uL (130-400); RDW 18.7 % (11.5-14.5); WBC 16.9 10x3/uL (4.8-10.8)
[2019-01-22 02:50] LABS: HEMATOCRIT 32.3 % (42.0-54.0); RBC 4.25 10x6/uL (4.20-6.10)
[2019-01-22 03:06] LABS: ALBUMIN 2.3 g/dL (3.4-5.0); ALKALINE PHOSPHATASE 76 U/L (46-116); ALT (SGPT) 33 U/L (10-68); CALC OSMOLALITY 287 mosm/kg (275-300); CALCIUM 7.1 mg/dL (8.5-10.1); CARBON DIOXIDE 24.6 mmol/L (21.0-32.0); CHLORIDE - SERUM 105 mmol/L (98-107); CREATININE - SERUM 1.3 mg/dL (0.6-1.3); GLUCOSE 221 mg/dL (74-106); MAGNESIUM - SERUM 1.4 mg/dL (1.8-2.4); PHOSPHOROUS 3.7 mg/dL (2.5-4.9); POTASSIUM - SERUM 3.6 mmol/L (3.5-5.1); PROTEIN - SERUM 6.3 g/dL (6.4-8.2); SODIUM 140 mmol/L (136-145); TROPONIN-I < 0.017 ng/mL (0.000-0.060); UREA NITROGEN 17 mg/dL (7-18); eGFR NON AFRICAN AMERICAN 58 mL/min (90-120)
[2019-01-23] VITALS (25 sets, daily range): BP systolic 112–170; BP diastolic 53–84
[2019-01-23 03:00] LABS: BASOPHILS 0.1 % (0-2); EOSINOPHILS 0.4 % (0-7); HEMATOCRIT 31.4 % (42.0-54.0); HEMOGLOBIN 9.7 g/dL (13.5-17.5); IMMATURE GRANULOCYTES 0.3 % (0-5); MCH 23.5 pg (26.0-34.0); MCHC 30.9 g/dL (31.0-37.0); MCV 76.2 fL (80.0-100.0); MEAN PLATELET VOLUME 9.4 fL (7.4-10.4); MONOCYTES 12.7 % (2-11); NEUTROPHILS 79.5 % (40-80); PLATELET COUNT 233 10x3/uL (130-400); RBC 4.12 10x6/uL (4.20-6.10); RDW 18.4 % (11.5-14.5); WBC 16.9 10x3/uL (4.8-10.8)
[2019-01-23 03:11] LABS: ANION GAP 9.8 mmol/L (8-16); CALCIUM 7.6 mg/dL (8.5-10.1); CARBON DIOXIDE 27.9 mmol/L (21.0-32.0); CREATININE - SERUM 1.2 mg/dL (0.6-1.3); PHOSPHOROUS 4.3 mg/dL (2.5-4.9); POTASSIUM - SERUM 3.7 mmol/L (3.5-5.1)
[2019-01-23 03:17] LABS: MAGNESIUM - SERUM 1.9 mg/dL (1.8-2.4)
[2019-01-23 11:23] LABS: BASOPHILS 0.1 % (0-2); EOSINOPHILS 0.7 % (0-7); HEMATOCRIT 30.7 % (42.0-54.0); HEMOGLOBIN 9.5 g/dL (13.5-17.5); IMMATURE GRANULOCYTES 0.3 % (0-5); LYMPHOCYTES 7.6 % (15-50); MCH 23.7 pg (26.0-34.0); MCHC 30.9 g/dL (31.0-37.0); MCV 76.6 fL (80.0-100.0); MEAN PLATELET VOLUME 9.6 fL (7.4-10.4); MONOCYTES 13.9 % (2-11); NEUTROPHILS 77.4 % (40-80); PLATELET COUNT 234 10x3/uL (130-400); RBC 4.01 10x6/uL (4.20-6.10); RDW 18.5 % (11.5-14.5); WBC 14.1 10x3/uL (4.8-10.8)
[2019-01-24] VITALS (16 sets, daily range): BP systolic 132–183; BP diastolic 67–91
[2019-01-24 03:40] LABS: BASOPHILS 0.1 % (0-2); EOSINOPHILS 0.3 % (0-7); HEMATOCRIT 31.6 % (42.0-54.0); HEMOGLOBIN 9.8 g/dL (13.5-17.5); IMMATURE GRANULOCYTES 0.3 % (0-5); LYMPHOCYTES 7.2 % (15-50); MCH 23.7 pg (26.0-34.0); MCV 76.5 fL (80.0-100.0); MONOCYTES 10.4 % (2-11); NEUTROPHILS 81.7 % (40-80); PLATELET COUNT 249 10x3/uL (130-400); RBC 4.13 10x6/uL (4.20-6.10); RDW 18.9 % (11.5-14.5); WBC 14.8 10x3/uL (4.8-10.8)
[2019-01-24 03:51] LABS: ALBUMIN 2.5 g/dL (3.4-5.0); ANION GAP 13.3 mmol/L (8-16); BILIRUBIN - TOTAL 0.55 mg/dL (0.2-1.3); CALCIUM 8.1 mg/dL (8.5-10.1); CARBON DIOXIDE 24.4 mmol/L (21.0-32.0); CREATININE - SERUM 1.1 mg/dL (0.6-1.3); PHOSPHOROUS 3.4 mg/dL (2.5-4.9); POTASSIUM - SERUM 3.7 mmol/L (3.5-5.1); PROTEIN - SERUM 6.9 g/dL (6.4-8.2)
--- NOTE | 2019-01-24 18:09 | MORECARE ---
CASE MANAGEMENT DISCHARGE SUMMARY PATIENT: RUDI WILKINSON UNIT: [id number] ADM DATE: 01/21/19 AGE: 73 : 47 SEX: M ROOM/BED: D.2215 AUTHOR: DENISHA ABURTO PHYSICIAN: REFERRING PHYSICIAN: ASHISH BLOCK MD DATE OF SERVICE: 01/24/19 Discharge Plan Patient Name: RUDI WILKINSON [facility] [facility] 1945 Planned Disposition: Home Anticipated Discharge Date: Discharge Date: Expected LOS: Initial Reviewer: [email or web address] Initial Review Date: 01/24/2019 Generated: 01/24/19 7:09 pm DCPIA - Discharge Planning Initial Assessment Updated by [email or web address]: Nikki Corona on 01/24/19 6:07 pm * Is the patient Alert and Oriented? Yes * How many steps to enter\exit or inside your home? * PCP KEL * Pharmacy [facility] * Preadmission Environment Home Alone * ADLs Independent * Other Equipment WHEELCHAIR, WALKER, NEBULIZER, BSC, SHOWER CHAIR * List name and contact numbers for known caregivers / representatives who currently or will assist patient after discharge: SEDRICK AVILA - DAUGHTER - [phone] GABE RAINEY - DAUGHTER- [phone] * Verbal permission to speak to the caregivers and representatives has been obtained from the patient. Yes * Community resources currently utilized None * Additional services required to return to the preadmission environment? No * Can the patient safely return to the preadmission environment? Yes * Has this patient been hospitalized within the prior 30 days at any hospital? No Patient Name: RUDI WILKINSON Page [phone] at 1809 All edits/amendments must be made on the electronic document DICTATION DATE: 01/24/191808 DRAW PRESS OPERATOR: JIMBO 01/24/191808 RPT#: [id number] DC DATE: STATUS: ADM IN [facility] [address] [place] [address] END OF REPORT
--- NOTE | 2019-01-24 18:18 | MORECARE ---
CASE MANAGEMENT DISCHARGE SUMMARY PATIENT: RUDI WILKINSNO UNIT: [id number] ADM DATE: 01/21/19 AGE: 73 : 47 SEX: M ROOM/BED: D.2215 AUTHOR: LAMONTE,DOC PHYSICIAN: REFERRING PHYSICIAN: ASHISH BLOCK MD DATE OF SERVICE: 01/24/19 Discharge Plan Patient Name: RUDI WILKINSON Facility: [facility]:[place] : 1945 Planned Disposition: Home Anticipated Discharge Date: Discharge Date: Expected LOS: Initial Reviewer: [email or web address] Initial Review Date: 01/24/2019 Generated: 01/24/19 7:18 pm Comments DCP- Discharge Planning Updated by [email or web address]: Nikki Corona on 01/24/19 5:[address] Patient Name: RUDI WILKINSON Admission Status: Elective Accout number: [id number] Admission Date: 01-21-2019 : 1945 Admission Diagnosis:MALIGNANT NEOPLASM OF CECUM Attending: ASHISH BLOCK Current LOS: 3 Anticipated DC Date: Planned Disposition: Home Primary Insurance: [facility] MEDICARE SOLUTIONS Discharge Planning Comments: CM met with patient and daughter (Mayte) at bedside after explaining CM role and obtaining verbal consent. Patient lives at home alone and plans to return there upon discharge. Patient feels this would be a safe discharge. Patient states all his family lives close. CM discussed availability / needs of home health and medical equipment. Patient denies any discharge needs at this time. Patient states he will have his family drive him home upon discharge. CM will continue to follow and assist as needed with discharge planning / needs. Manufacturing Development Engineer: Nikki Corona DCPIA - Discharge Planning Initial Assessment Updated by [email or web address]: Nikki Corona on 01/24/19 6:07 pm * Is the patient Alert and Oriented? Yes * How many steps to enter\exit or inside your home? * PCP KEL * Pharm[facility] * Preadmission Environment Home Alone * ADLs Independent * Other Equipment WHEELCHAIR, WALKER, NEBULIZER, BSC, SHOWER CHAIR * List name and contact numbers for known caregivers / representatives who currently or will assist patient after discharge: SEDRICK AVILA - DAUGHTER - [phone] GABE VEGA- [phone] * Verbal permission to speak to the caregivers and representatives has been obtained from the patient. Yes * Community resources currently utilized None * Additional services required to return to the preadmission environment? No * Can the patient safely return to the preadmission environment? Yes * Has this patient been hospitalized within the prior 30 days at any hospital? No Last DP export: 01/24/19 5:09 p Patient Name: RUDI WILKINSON Page 07911 at 1818 All edits/amendments must be made on the electronic document DICTATION DATE: 01/24/191816 ABALONE SHELLER: JIMBO 01/24/191816 RPT#: [id number] DC DATE: STATUS: ADM IN [facility] [address] [place] [address] END OF REPORT
[2019-01-25 01:28] VITALS: BP 129/61
[2019-01-25 05:34] VITALS: BP 161/64
[2019-01-25 06:47] LABS: BASOPHILS 0.1 % (0-2); EOSINOPHILS 1.2 % (0-7); HEMATOCRIT 32.7 % (42.0-54.0); HEMOGLOBIN 10.1 g/dL (13.5-17.5); IMMATURE GRANULOCYTES 0.3 % (0-5); LYMPHOCYTES 8.2 % (15-50); MCH 23.7 pg (26.0-34.0); MCHC 30.9 g/dL (31.0-37.0); MCV 76.8 fL (80.0-100.0); MEAN PLATELET VOLUME 9.8 fL (7.4-10.4); MONOCYTES 9.5 % (2-11); NEUTROPHILS 80.7 % (40-80); RBC 4.26 10x6/uL (4.20-6.10); RDW 19.5 % (11.5-14.5); WBC 14.6 10x3/uL (4.8-10.8)
[2019-01-25 07:04] LABS: ANION GAP 13.1 mmol/L (8-16); BILIRUBIN - TOTAL 0.45 mg/dL (0.2-1.3); CALCIUM 8.5 mg/dL (8.5-10.1); CARBON DIOXIDE 21.4 mmol/L (21.0-32.0); CREATININE - SERUM 1.2 mg/dL (0.6-1.3); POTASSIUM - SERUM 3.5 mmol/L (3.5-5.1); PROTEIN - SERUM 7.3 g/dL (6.4-8.2)
[2019-01-25 07:10] LABS: PLATELET COUNT 321 10x3/uL (130-400)
[2019-01-25 08:38] VITALS: BP 140/71
[2019-01-25 13:07] VITALS: BP 150/64
[2019-01-25 16:40] VITALS: BP 147/70
[2019-01-25 20:00] VITALS: BP 119/48
[2019-01-26] VITALS: BP 163/70
[2019-01-26 04:30] VITALS: BP 156/66
[2019-01-26 04:59] LABS: BASOPHILS 0.1 % (0-2); EOSINOPHILS 2.7 % (0-7); HEMATOCRIT 30.8 % (42.0-54.0); HEMOGLOBIN 9.5 g/dL (13.5-17.5); IMMATURE GRANULOCYTES 0.2 % (0-5); LYMPHOCYTES 11.4 % (15-50); MCH 23.8 pg (26.0-34.0); MCHC 30.8 g/dL (31.0-37.0); MCV 77.2 fL (80.0-100.0); MEAN PLATELET VOLUME 10.2 fL (7.4-10.4); MONOCYTES 12.4 % (2-11); NEUTROPHILS 73.2 % (40-80); PLATELET COUNT 306 10x3/uL (130-400); RBC 3.99 10x6/uL (4.20-6.10); RDW 19.6 % (11.5-14.5); WBC 11.2 10x3/uL (4.8-10.8)
[2019-01-26 05:03] LABS: ANION GAP 13.9 mmol/L (8-16); CARBON DIOXIDE 21.5 mmol/L (21.0-32.0); CREATININE - SERUM 1.1 mg/dL (0.6-1.3); POTASSIUM - SERUM 3.4 mmol/L (3.5-5.1)
[2019-01-26 09:22] VITALS: BP 122/68
[2019-01-26 12:49] VITALS: BP 165/64
[2019-01-26 14:56] VITALS: BP 157/69
[2019-01-26 15:33] LABS: APPEARANCE CLEAR (CLEAR); BILIRUBIN NEGATIVE (NEGATIVE); COLOR YELLOW (YELLOW); GLUCOSE NEGATIVE (NEGATIVE); KETONE NEGATIVE (NEGATIVE); NITRITE NEGATIVE (NEGATIVE); PROTEIN 1+ mg/dL (NEGATIVE); UROBILINOGEN NORMAL (NORMAL)
[2019-01-26 15:34] LABS: RED CELLS - URINE OCC /hpf (0-5); WHITE CELLS - URINE OCC /hpf (0-5)
[2019-01-26 20:00] VITALS: BP 179/89
[2019-01-27] VITALS: BP 157/68
[2019-01-27 04:00] VITALS: BP 123/84
[2019-01-27 05:27] LABS: BASOPHILS 0.2 % (0-2); EOSINOPHILS 2.4 % (0-7); HEMATOCRIT 30.9 % (42.0-54.0); HEMOGLOBIN 9.5 g/dL (13.5-17.5); IMMATURE GRANULOCYTES 0.3 % (0-5); LYMPHOCYTES 12.7 % (15-50); MCH 23.6 pg (26.0-34.0); MCHC 30.7 g/dL (31.0-37.0); MCV 76.7 fL (80.0-100.0); MEAN PLATELET VOLUME 9.8 fL (7.4-10.4); MONOCYTES 13.2 % (2-11); NEUTROPHILS 71.2 % (40-80); PLATELET COUNT 312 10x3/uL (130-400); RBC 4.03 10x6/uL (4.20-6.10); RDW 19.5 % (11.5-14.5); WBC 8.9 10x3/uL (4.8-10.8)
[2019-01-27 05:35] LABS: CALC OSMOLALITY 287 mosm/kg (275-300); CALCIUM 8.3 mg/dL (8.5-10.1); CARBON DIOXIDE 22.9 mmol/L (21.0-32.0); CHLORIDE - SERUM 109 mmol/L (98-107); CREATININE - SERUM 0.9 mg/dL (0.6-1.3); GLUCOSE 159 mg/dL (74-106); POTASSIUM - SERUM 3.7 mmol/L (3.5-5.1); SODIUM 142 mmol/L (136-145); UREA NITROGEN 18 mg/dL (7-18); eGFR NON AFRICAN AMERICAN 88 mL/min (90-120)
[2019-01-27 09:00] VITALS: BP 173/90
[2019-01-27 12:36] VITALS: BP 149/76
[2019-01-27 16:43] VITALS: BP 165/85
[2019-01-28 00:07] VITALS: BP 118/76
[2019-01-28 05:07] VITALS: BP 155/74
[2019-01-28 06:25] LABS: BASOPHILS 0.4 % (0-2); EOSINOPHILS 3.3 % (0-7); HEMATOCRIT 28.5 % (42.0-54.0); HEMOGLOBIN 8.7 g/dL (13.5-17.5); IMMATURE GRANULOCYTES 0.3 % (0-5); LYMPHOCYTES 16.1 % (15-50); MCH 23.1 pg (26.0-34.0); MCHC 30.5 g/dL (31.0-37.0); MCV 75.6 fL (80.0-100.0); MEAN PLATELET VOLUME 9.9 fL (7.4-10.4); MONOCYTES 14.6 % (2-11); NEUTROPHILS 65.3 % (40-80); PLATELET COUNT 317 10x3/uL (130-400); RBC 3.77 10x6/uL (4.20-6.10); RDW 19.5 % (11.5-14.5); WBC 7.6 10x3/uL (4.8-10.8)
[2019-01-28 06:51] LABS: CALC OSMOLALITY 290 mosm/kg (275-300); CALCIUM 7.8 mg/dL (8.5-10.1); CARBON DIOXIDE 26.1 mmol/L (21.0-32.0); CHLORIDE - SERUM 109 mmol/L (98-107); GLUCOSE 148 mg/dL (74-106); POTASSIUM - SERUM 3.2 mmol/L (3.5-5.1); SODIUM 144 mmol/L (136-145); UREA NITROGEN 15 mg/dL (7-18); eGFR NON AFRICAN AMERICAN 78 mL/min (90-120)
[2019-01-28 09:00] VITALS: BP 170/72
[2019-01-28 13:23] VITALS: BP 137/62
[2019-01-28 17:22] VITALS: BP 183/73
[2019-01-28 20:06] VITALS: BP 179/79
[2019-01-29 00:57] VITALS: BP 161/75
[2019-01-29 04:35] VITALS: BP 170/81
[2019-01-29 07:18] LABS: BASOPHILS 0.2 % (0-2); EOSINOPHILS 3.1 % (0-7); HEMATOCRIT 29.6 % (42.0-54.0); HEMOGLOBIN 9.3 g/dL (13.5-17.5); IMMATURE GRANULOCYTES 0.2 % (0-5); LYMPHOCYTES 14.2 % (15-50); MCH 23.8 pg (26.0-34.0); MCHC 31.4 g/dL (31.0-37.0); MCV 75.7 fL (80.0-100.0); MEAN PLATELET VOLUME 9.5 fL (7.4-10.4); MONOCYTES 12.5 % (2-11); NEUTROPHILS 69.8 % (40-80); PLATELET COUNT 315 10x3/uL (130-400); RBC 3.91 10x6/uL (4.20-6.10); RDW 20.1 % (11.5-14.5); WBC 8.9 10x3/uL (4.8-10.8)
[2019-01-29 07:37] LABS: CALC OSMOLALITY 284 mosm/kg (275-300); CALCIUM 8.3 mg/dL (8.5-10.1); CARBON DIOXIDE 28.6 mmol/L (21.0-32.0); CHLORIDE - SERUM 105 mmol/L (98-107); GLUCOSE 139 mg/dL (74-106); SODIUM 142 mmol/L (136-145); UREA NITROGEN 12 mg/dL (7-18); eGFR NON AFRICAN AMERICAN 78 mL/min (90-120)
[2019-01-29 07:38] LABS: POTASSIUM - SERUM 3.2 mmol/L (3.5-5.1)
[2019-01-29 08:35] VITALS: BP 157/63
[2019-01-29 12:48] VITALS: BP 114/62
[2019-01-29 16:47] VITALS: BP 150/77
[2019-01-29 20:00] VITALS: BP 158/71
[2019-01-30] VITALS: BP 149/73
[2019-01-30 04:00] VITALS: BP 140/65
[2019-01-30 07:16] LABS: BASOPHILS 0.2 % (0-2); EOSINOPHILS 2.6 % (0-7); HEMATOCRIT 29.6 % (42.0-54.0); HEMOGLOBIN 9.2 g/dL (13.5-17.5); IMMATURE GRANULOCYTES 0.4 % (0-5); LYMPHOCYTES 14.3 % (15-50); MCH 23.6 pg (26.0-34.0); MCHC 31.1 g/dL (31.0-37.0); MCV 75.9 fL (80.0-100.0); MEAN PLATELET VOLUME 9.8 fL (7.4-10.4); MONOCYTES 14.3 % (2-11); NEUTROPHILS 68.2 % (40-80); PLATELET COUNT 356 10x3/uL (130-400); RDW 20.4 % (11.5-14.5); WBC 10.6 10x3/uL (4.8-10.8)
[2019-01-30 07:31] LABS: ANION GAP 10.7 mmol/L (8-16); CALCIUM 7.8 mg/dL (8.5-10.1); CARBON DIOXIDE 30.4 mmol/L (21.0-32.0); CREATININE - SERUM 1.2 mg/dL (0.6-1.3)
[2019-01-30 07:37] LABS: POTASSIUM - SERUM 3.1 mmol/L (3.5-5.1)
[2019-01-30 09:05] VITALS: BP 150/70
--- NOTE | 2019-01-30 12:59 | MORECARE ---
CASE MANAGEMENT DISCHARGE SUMMARY PATIENT: URDI WILKINSON UNIT: [id number] ADM DATE: 01/21/19 AGE: 73 : 47 SEX: M ROOM/BED: D.2215 AUTHOR: LAMONTEDOC PHYSICIAN: REFERRING PHYSICIAN: ASHISH BLOCK MD DATE OF SERVICE: 01/30/19 Discharge Plan Patient Name: RUDI WILKINSON Facility: [facility]:[place] : 1945 Planned Disposition: Home Anticipated Discharge Date: 01/30/19 Discharge Date: Expected LOS: 9 Initial Reviewer: [email or web address] Initial Review Date: 01/24/2019 Generated: 01/30/19 1:58 pm DCP- Discharge Planning Updated by [email or web address]: Nikki Corona on 01/24/19 5:[address] Patient Name: RUDI WILKINSON Admission Status: Elective Accout number: [id number] Admission Date: 01-21-2019 : 1945 Admission Diagnosis:MALIGNANT NEOPLASM OF CECUM Attending: ASHISH BLOCK Current LOS: 3 Anticipated DC Date: Planned Disposition: Home Primary Insurance: [facility] MEDICARE SOLUTIONS Discharge Planning Comments: CM met with patient and daughter (Mayte) at bedside after explaining CM role and obtaining verbal consent. Patient lives at home alone and plans to return there upon discharge. Patient feels this would be a safe discharge. Patient states all his family lives close. CM discussed availability / needs of home health and medical equipment. Patient denies any discharge needs at this time. Patient states he will have his family drive him home upon discharge. CM will continue to follow and assist as needed with discharge planning / needs. Scientific Editor: Nikki Corona DCPIA - Discharge Planning Initial Assessment Updated by [email or web address]: Nikki Corona on 01/24/19 6:07 pm * Is the patient Alert and Oriented? Yes * How many steps to enter\exit or inside your home? * PCP KEL * Pharmacy [facility] * Preadmission Environment Home Alone * ADLs Independent * Other Equipment WHEELCHAIR, WALKER, NEBULIZER, BSC, SHOWER CHAIR * List name and contact numbers for known caregivers / representatives who currently or will assist patient after discharge: SEDRICK AVILA - DAUGHTER - [phone] GABE RAINEY - DAUGHTER- [phone] * Verbal permission to speak to the caregivers and representatives has been obtained from the patient. Yes * Community resources currently utilized None * Additional services required to return to the preadmission environment? No * Can the patient safely return to the preadmission environment? Yes * Has this patient been hospitalized within the prior 30 days at any hospital? No Coverage Notice Reviewer: [email or web address] Sabino Gilbert Notice Issued Date-Time: 01/30/2019 12:45 Notice Type: IM Discharge Notice Notice Delivered To: Patient Relationship to Patient: Self Engine Turner Name: Delivery Method: - Fabiola Days: Prior Verbal Notification: Recipient Understood Notice: Recipient Signature: Med Rec Note Co-signed by Attending: Coverage Notice Comment: Last DP export: 01/24/19 5:18 p Patient Name: RUDI WILKINSON Page 19174 at 1259 All edits/amendments must be made on the electronic document DICTATION DATE: 01/30/191257 FEEDMOBILE DRIVER: JIMBO 01/30/19 1258 RPT#: [id number] DC DATE: STATUS: ADM IN [facility] [address] [place] [address] END OF REPORT
--- NOTE | 2019-01-30 14:09 | OP ---
PATIENT NAME: RUDI WILKINSON MEDICAL RECORD: [id number] :[birth year] LOCATION:D.MS [address] ADMISSION DATE:01/21/19 SURGEON: ASHISH BLOCK MD DATE OF OPERATION: 01/21/2019 PREOPERATIVE DIAGNOSES: 1. Cecal adenocarcinoma. 2. Transverse colon polyp, endoscopically unresectable. POSTOPERATIVE DIAGNOSES: 1. Cecal adenocarcinoma. 2. Transverse colon polyp, endoscopically unresectable. 3. Extensive intra-abdominal adhesions. PROCEDURE: Attempted hand-assisted laparoscopic colectomy with conversion to open extended right hemicolectomy. SURGEON: Ashish Block MD ENROLLMENT MANAGEMENT MANAGER: Hemant Dyson [facility]. BLOOD LOSS: Please see the anesthesia sheet. DRAINS: Times 1 (19-Iraqi round closed suction drainage system, this is an indicator drain). COMPLICATIONS: None. OPERATIVE COURSE: The patient was conveyed the operating room electively on 01/21/2019. General anesthesia was induced by the anesthesia staff. The abdomen was sterilely prepped and draped. A small skin incision was accomplished in the left upper quadrant. A Veress needle was inserted through the skin incision into the peritoneal cavity. CO2 insufflation was begun. Once a sufficient pneumoperitoneum had been achieved, a 5-mm trocar was inserted. Utilizing television camera through this trocar, I was able to observe that extensive intra-abdominal adhesions were present. It is at this time I elected to convert to an open procedure. The patient had a prior perforated duodenal or gastric ulcer and had peritonitis and evidently has extensive adhesions from that prior operation. I entered the midline through the patient's prior scar. During the operation, I had to extend my incision cephalad. I began an adhesiolysis, which was a combination of sharp and blunt adhesiolysis. The adhesiolysis took 42 minutes. Once I had released all the intra-abdominal adhesions. I identified the tattooed area that was distal to the worrisome polyp. I incised along the right white line of Toldt, I folded the right colon medially. I swept down the ureter and the duodenum, which were retracted for protection. I incised the peritoneal reflection over the hepatic flexure and was able to mobilize the hepatic flexure. Some excess omentum was in my way and I excised some of this utilizing Super Jaw EnSeal device. OPERATIVE REPORT [id number] RUDI WILKINSON A window was created in the mesentery of the transverse colon just distal to the distal most tattoo. I stapled across the colon here with a AURY-75 stapler. I then chose the proximal extent of my resection to be the distal ileum. A window was created in the mesentery of the ileum. I stapled across the ileum with a AURY-75 stapler. The interposed mesentery was taken down with the Super Jaw EnSeal device. There was a lot of thickening of the mesentery around the cecum. I think this is likely due to malignant lymph nodes that are in this area. The specimen was opened up on the back table. I confirmed that the cecal tumor was within the specimen as was the suspicious polyp. I then re-gowned and re-gloved. I placed the ileum and the transverse colon into apposition side by side. I sutured their antimesenteric borders together with interrupted 3-0 Vicryl sutures. A small enterotomy and small colotomy were accomplished. Anvils of the AURY-75 stapler were advanced and then fired. The resulting enterocolonic defect was closed with single firing of TA 60 stapler. The anastomosis was opened to 2 fingers. I ran the small bowel to ensure that there has been no evidence of small bowel injury. I irrigated and aspirated. There was no further bleeding. A 19-Iraqi round drain was brought out through the trocar site in the left upper quadrant. It was draped across the peritoneal cavity and its tip terminates in the right pericolic gutter. The midline fascia was closed with a running looped #1 PDS from the cephalad and caudad direction. The subdermis was approximated with interrupted 3-0 Vicryls. The skin was approximated with metallic clips. The drainage was sutured to skin with a 4-0 nylon. Sterile dressings were applied. The patient was then extubated and conveyed to post-anesthesia care unit where he was in stable condition. TRANSINT:[id number] Voice Confirmation ID: [id number] DOCUMENT ID: [id number] 01/28/2019 Edited for upper lining cementer error, [email or web address]. ASHISH BLOCK MD at 1409 CC: [id number] DICTATION DATE: 01/21/19 1509 MILITARY EXCHANGE WIRELESS MANAGER: 01/21/19 2322 ADM IN [facility] [address] [place] [address]
--- NOTE | 2019-01-30 15:07 | MORECARE ---
CASE MANAGEMENT DISCHARGE SUMMARY PATIENT: RUDI WILKINSON UNIT: [id number] ADM DATE: 01/21/19 AGE: 73 : 47 SEX: M ROOM/BED: D.2215 AUTHOR: LAMONTE,DOC PHYSICIAN: REFERRING PHYSICIAN: ASHISH BLOCK MD DATE OF SERVICE: 01/30/19 Discharge Plan Patient Name: RUDI WILKINSON Facility: [facility]:[place] : 1945 Planned Disposition: Home Anticipated Discharge Date: 01/30/19 Discharge Date: 01/30/2019 Expected LOS: 9 Initial Reviewer: [email or web address] Initial Review Date: 01/24/2019 Generated: 01/30/19 4:07 pm DCP- Discharge Planning Updated by [email or web address]: Nikki Corona on 01/24/19 5:[address] Patient Name: RUDI WILKINSON Admission Status: Elective Accout number: [id number] Admission Date: 01-21-2019 : 1945 Admission Diagnosis:MALIGNANT NEOPLASM OF CECUM Attending: ASHISH BLOCK Current LOS: 3 Anticipated DC Date: Planned Disposition: Home Primary Insurance: [facility] MEDICARE SOLUTIONS Discharge Planning Comments: CM met with patient and daughter (Mayte) at bedside after explaining CM role and obtaining verbal consent. Patient lives at home alone and plans to return there upon discharge. Patient feels this would be a safe discharge. Patient states all his family lives close. CM discussed availability / needs of home health and medical equipment. Patient denies any discharge needs at this time. Patient states he will have his family drive him home upon discharge. CM will continue to follow and assist as needed with discharge planning / needs. Production Line Operator: Nikki Corona DCPIA - Discharge Planning Initial Assessment Updated by [email or web address]: Nikki Corona on 01/24/19 6:07 pm * Is the patient Alert and Oriented? Yes * How many steps to enter\exit or inside your home? * PCP KEL * Pharmacy [facility] * Preadmission Environment Home Alone * ADLs Independent * Other Equipment WHEELCHAIR, WALKER, NEBULIZER, BSC, SHOWER CHAIR * List name and contact numbers for known caregivers / representatives who currently or will assist patient after discharge: SEDRICK AVILA - DAUGHTER - [phone] GABE RAINEY - DAUGHTER- [phone] * Verbal permission to speak to the caregivers and representatives has been obtained from the patient. Yes * Community resources currently utilized None * Additional services required to return to the preadmission environment? No * Can the patient safely return to the preadmission environment? Yes * Has this patient been hospitalized within the prior 30 days at any hospital? No Coverage Notice Reviewer: [id number] Sabino Gilbert Notice Issued Date-Time: 01/30/2019 12:45 Notice Type: IM Discharge Notice Notice Delivered To: Patient Relationship to Patient: Self Wig Sales Consultant Name: Delivery Method: HAND - Hand Delivered Fabiola Days: Prior Verbal Notification: Recipient Understood Notice: Yes Recipient Signature: Yes Med Rec Note Co-signed by Attending: Coverage Notice Comment: Explained discharge IMM. Patient had no questions or concerns. Signature obtained. Copy to the patient. Copy to the hard chart. Last DP export: 01/30/19 11:58 a Patient Name: RUDI WILKINSON Page 15833 at 1507 All edits/amendments must be made on the electronic document DICTATION DATE: 01/30/19 1507 SPECIALIST EMPLOYEE LABOR RELATIONS: JIMBO 01/30/19 1507 RPT#: [id number] DC DATE:01/30/19 STATUS: DIS IN [facility] [address] [place] [address] END OF REPORT
== END 2019-01-30 14:39 | disposition home or self-care (01) | DRG 329 ==
LOC: D.ICU 01-21 08:14 → D.MS 01-21 08:14 → D.SDCHOLD 01-21 08:14 → D.ICU 01-21 14:23 → D.MS 01-24 16:25
PROVIDERS: Anesthesiology; Internal Medicine Nephrology; Internal Medicine Pulmonary Disease; ADMIT Surgery; ATTEND Surgery
PROC: 0DTH0ZZ Resection of Cecum, Open Approach (ICD-10-PCS; principal; 2019-01-21 10:15)
PROC: 5A09357 Assistance with Respiratory Ventilation, Less than 24 Consecutive Hours, Continuous Positive Airway Pressure (ICD-10-PCS; 2019-01-22)
DX: C18.0 Malignant neoplasm of cecum (principal); J95.821 Acute postprocedural respiratory failure; J44.1 Chronic obstructive pulmonary disease with (acute) exacerbation; J98.11 Atelectasis; C77.2 Secondary and unspecified malignant neoplasm of intra-abdominal lymph nodes; I50.20 Unspecified systolic (congestive) heart failure; K63.5 Polyp of colon; K21.9 Gastro-esophageal reflux disease without esophagitis; E11.9 Type 2 diabetes mellitus without complications; M16.11 Unilateral primary osteoarthritis, right hip; E87.6 Hypokalemia; E83.51 Hypocalcemia; K27.9 Peptic ulcer, site unspecified, unspecified as acute or chronic, without hemorrhage or perforation; J45.909 Unspecified asthma, uncomplicated; I11.0 Hypertensive heart disease with heart failure; D64.9 Anemia, unspecified; I35.8 Other nonrheumatic aortic valve disorders